=== PATIENT | male | born 1950 | race African-American/Black ===

== ENCOUNTER 2016-03-08 05:51 | Emergency (ER) | payer OTHER ==
[~2016-03-08] VITALS: Ht 188 cm; Wt 138.0 kg
[~2016-03-08 05:51] MED LIST: ACET-2158 PO; ALLO100T PO; ASPI81TA3 PO; ATOR40TA68 PO; CARV12.579 PO; CHOL100062 PO; CIPR500T4 PO; DOCU250C58 PO; HYDR-3012 PO; LEVO25TA53 PO; LORATIDINE PO; LOSA100T7 PO; METF500T4 PO; MULTI PO
[2016-03-08 06:04] VITALS: Ht 188 cm; Wt 138.0 kg
[2016-03-08 06:50] LABS: HEMATOCRIT 29.3 % (42.0-52.0); HEMOGLOBIN 9.9 g/dl (14.0-18.0); MEAN CORPUSCULAR HEMOGLOBIN 30.2 pg (29.0-33.0); MEAN CORPUSCULAR HGB CONC 33.7 g/dl (32.0-37.0); MEAN CORPUSCULAR VOLUME 89.6 fl (82.0-101.0); MEAN PLATELET VOLUME 9.1 fl (7.4-10.4); PLATELET COUNT 341 10^3/UL (140-440); RED BLOOD COUNT 3.27 10^6/ul (4.70-6.10); RED CELL DISTRIBUTION WIDTH 15.8 % (11.5-14.5); UNCORRECTED WBC 15.4 10^3/ul (4.8-10.8); WHITE BLOOD COUNT 15.4 10^3/ul (4.8-10.8)
[2016-03-08 06:53] LABS: ADD UMIC YES; URINE BILIRUBIN (Dip) 2+ (NEGATIVE); URINE BLOOD (Dip) 3+ (NEGATIVE); URINE COLOR DK. RED (YELLOW); URINE GLUCOSE (Dip) NEGATIVE (NEGATIVE); URINE KETONES (Dip) TRACE (NEGATIVE); URINE LEUKOCYTE ESTERASE (Dip) 1+ (NEGATIVE); URINE NITRITE (Dip) POSITIVE (NEGATIVE); URINE TOTAL PROTEIN (Dip) 4+ (NEGATIVE); URINE UROBILINOGEN (Dip) 1.0 E.U./dL (0.1-1.0)
[2016-03-08 06:55] LABS: INR 1.2; PROTIME 15.3 Sec (12.2-14.2); PT RATIO 1.2
[2016-03-08 06:56] LABS: CONDITION 1; LH ANALYZER COMMENTS 1; PARTIAL THROMBOPLASTIN TIME 33.8 Sec (25.0-35.0); SUSPECT 1
[2016-03-08 06:59] LABS: BACTERIA,URINE MODERATE; ICTOTEST NEGATIVE (NEGATIVE); URINE RBCS >200 /HPF (0)
[2016-03-08 07:00] LABS: POTASSIUM 5.1 mmol/L (3.5-5.1)
[2016-03-08 07:02] LABS: CREATININE 2.65 mg/dl (0.61-1.24)
[2016-03-08 07:03] LABS: CALCIUM 9.1 mg/dl (8.4-10.2)
[2016-03-08] MEDS ORDERED: CIPR500T4 PO (07:35)
[2016-03-08 07:38] LABS: ANISOCYTOSIS 1+; EOSINOPHILS # 0.2 10^3/ul (0.0-0.5); LYMPHOCYTES # 1.5 10^3/ul (0.8-2.9); MONOCYTE # 1.1 10^3/ul (0.3-0.9); NEUTROPHIL # 11.4 10^3/ul (1.6-7.5)
[2016-03-08] MEDS ORDERED: LOPE2CAP PO (07:54)
--- NOTE | 2016-03-08 08:06 | ERD ---
ER Documentation Chief Complaint Date/Time DATE: 03/08/16 TIME: 08:04 Chief Complaint bladder retention and bleeding ffrom urethra x 10 hrs, pain HPI Patient is a 65-year-old male with bladder cancer who presents saying that he is unable to pee. He has been unable to urinate for the past 12 hours. He is having pain over the bladder. He has no fevers. He said that he had resection of a bladder tumor last week and BCG implantation. He has an appointment scheduled with his urologist at the [facility] tomorrow. Upon review of old medical records this is the patient's fourth visit to the ER since 2009. ROS All systems reviewed and are negative except as per history of present illness. Medications Home Meds Active Scripts Loperamide Hcl* (Imodium*) 2 Mg Capsule, 2 MG PO .AFTER EA LOOSE BM Y for DIARRHEA, #10 TAB Prov:FADIA HATCH MD 03/08/16 Ciprofloxacin Hcl* (Ciprofloxacin Hcl*) 500 Mg Tablet, 500 MG PO BID for 7 Days , TAB Prov:FADIA HATCH MD 03/08/16 Ciprofloxacin Hcl* (Ciprofloxacin Hcl*) 500 Mg Tablet, 500 MG PO BID, #20 TAB 0 Refills Prov:KOKO RAMSAY MD 09/12/14 Acetaminophen (TYLENOL 325 MG TAB) 325 Mg Tab, 650 MG PO Q6H Y for PAIN LEVEL 1- 3 OR FEVER for 10 Days, TAB Prov:YOON PERRY MD 06/14/14 Reported Medications [Loratidine] No Conflict Check, 10 MG PO DAILY 06/09/14 Carvedilol* (Carvedilol*) 12.5 Mg Tablet, 12.5 MG PO BID, TAB 06/09/14 Losartan Potassium* (Losartan Potassium*) 100 Mg Tablet, 100 MG PO DAILY, TAB 06/08/14 Aspirin* (Aspirin* Chew) 81 Mg Tab.chew, 81 MG PO DAILY, TAB.CHEW 06/08/14 Allopurinol* (Allopurinol*) 100 Mg Tablet, 200 MG PO DAILY, TAB 06/08/14 Cholecalciferol* (Vitamin D3*) 1,000 Unit Tablet, 1000 UNIT PO DAILY, TAB 06/08/14 Docusate Sodium* (Colace*) 250 Mg Capsule, 250 MG PO BID, CAP 06/08/14 Metformin* (Glucophage*) 500 Mg Tab, 500 MG PO BID, TAB 06/08/14 Hydroxyzine Hcl* (Hydroxyzine Hcl*) 50 Mg Tablet, 50 MG PO QHS Y for ITCHING, TAB 06/08/14 Atorvastatin* (Atorvastatin*) 40 Mg Tablet, 40 MG PO HS, TAB 06/08/14 Multivitamins* (Theragran*) 1 Tab Tab, 1 TAB PO DAILY, TAB 06/08/14 Levothyroxine Sodium* (Levothyroxine Sodium*) 25 Mcg Tablet, 25 MCG PO AC BREAKFAST, TAB 06/08/14 Allergies Allergies: Coded Allergies: Sulfa (Sulfonamide Antibiotics) (Verified Allergy, Mild, RASHES, 09/11/14) furosemide (Verified Allergy, Mild, Rash, 09/11/14) PMhx/Soc History of Surgery: Yes (PROSTATE BX, HEART STENT X 3) Anesthesia Reaction: No Hx Neurological Disorder: No Hx Respiratory Disorders: No Hx Cardiac Disorders: Yes (HTN,HIGH CHOLESTEROL) Hx Psychiatric Problems: No Hx Miscellaneous Medical Probl: Yes (ELEVATED PSA,BLADDER AND KIDNEY CA) Hx Alcohol Use: No Hx Substance Use: Yes Hx Tobacco Use: Yes Smoking Status: Current every day smoker FmHx Family History: No diabetes Physical Exam Vitals Vital Signs Date Time Temp Pulse Resp B/P Pulse Ox O2 Delivery O2 Flow Rate FiO2 03/08/16 06:04 98.7 90 22 134/73 98 Physical Exam Const: No acute distress Head: Atraumatic Eyes: Normal Conjunctiva ENT: Normal External Ears, Nose and Mouth. Neck: Full range of motion..~ No meningismus. Resp: Clear to auscultation bilaterally Cardio: Regular rate and rhythm, no murmurs Abd: Soft, non tender, non distended. Normal bowel sounds Skin: No petechiae or rashes Back: No midline or flank tenderness Ext: No cyanosis, or edema Neur: Awake and alert : Nursing place a Travis catheter which shows bloody urine Result Diagram: 03/08/1662403/08/16624 Results 24 hrs Laboratory Tests Test 03/08/16 06:21 03/08/16 06:25 Urine Bacteria MODERATE Urine Bilirubin 2+ Urine Clarity CLOUDY Urine Color DK. RED Urine Glucose NEGATIVE% Urine Hemoglobin 3+ Urine Ictotest NEGATIVE Urine Ketones TRACE Urine Leukocyte Esterase 1+ Urine Microscopic RBC >200/HPF Urine Microscopic WBC 2-5/HPF Urine Nitrite POSITIVE Urine Specific [place] 1.020 Urine Total Protein 4+ Urine Urobilinogen 1.0 E.U./dL Urine pH 7.0 Activated Partial Thromboplast Time 33.8Sec Anion Gap 20 Anisocytosis 1+ Band Neutrophils % 8.0% Basophils # 10^3/ul Basophils % % Blood Morphology Comment Blood Urea Nitrogen 31mg/dl Calcium Level 9.1mg/dl Carbon Dioxide Level 18mmol/L Chloride Level 103mmol/L Creatinine 2.65mg/dl Differential Comment MANUAL DIFF Eosinophils # 0.210^3/ul Eosinophils % 1.0% Glucose Level 130mg/dl Hematocrit 29.3% Hemoglobin 9.9g/dl INR International Normalized Ratio 1.20 Lymphocytes # 1.510^3/ul Lymphocytes % 10.0% Mean Corpuscular Hemoglobin 30.2pg Mean Corpuscular Hemoglobin Concent 33.7g/dl Mean Corpuscular Volume 89.6fl Mean Platelet Volume 9.1fl Monocytes # 1.110^3/ul Monocytes % 7.0% Neutrophils # 11.410^3/ul Neutrophils % 74.0% Nucleated Red Blood Cells # 10^3/ul Nucleated Red Blood Cells % /100WBC Platelet Count 78465^3/UL Potassium Level 5.1mmol/L Prothrombin Time 15.3Sec Prothrombin Time Ratio 1.2 Red Blood Count 3.2710^6/ul Red Cell Distribution Width 15.8% Sodium Level 136mmol/L White Blood Count 15.410^3/ul Procedures/MDM Patient is a 65-year-old male who presents with hematuria and urinary retention. Travis catheter was placed in the patient feels much better. The patient will be given Cipro to prevent infection and will follow up with his urologist tomorrow. His hemoglobin is 9.9 and he does not require transfusion although this does show anemia. He does have an elevated creatinine but upon review of an old creatinine in 2015 he has had this elevation in the past. I believe it is likely chronic. He can return for any worsening symptoms. He does have diarrhea but at this point I doubt GI bleed. Departure Diagnosis: Primary Impression: Hematuria Additional Impressions: Retention of urine Anemia Anemia type: unspecified type Qualified Code: D64.9 - Anemia, unspecified type Chronic renal failure Chronic kidney disease stage: unspecified stage Qualified Code: N18.9 - Chronic renal failure, unspecified stage Condition: Fair Patient Instructions: Hematuria, Urinary Retention, Male Additional Instructions: SPECIALIST: YOU HAVE A MEDICAL CONDITION WHICH REQUIRES YOU TO SEE A SPECIALIST WITHIN THE NEXT 1-2 DAYS. PLEASE FOLLOW UP WITH YOUR PRIMARY PHYSICIAN FOR REFFERAL.IF YOU DO NOT HAVE A PRIMARY CARE PHYSICIAN AND/OR YOU CAN NOT AFFORD TO SEE A PHYSICIAN THE FOLLOWING RESOURCES HAVE BEEN SUPPLIED TO YOU. IT IS YOUR RESPONSIBILITY TO BE SEEN BY THE SPECIALIST FADIA HATCH MD Mar 08, 2016 08:06
[2016-03-08 08:29] VITALS: BP 105/93; PULSE 78; RESP 18; TEMP 98.1
== END 2016-03-08 08:43 | disposition home or self-care (01) ==
LOC: E/R 05:51
DX: R31.9 Hematuria, unspecified (principal); D64.9 Anemia, unspecified; N18.9 Chronic kidney disease, unspecified; F17.210 Nicotine dependence, cigarettes, uncomplicated; E11.9 Type 2 diabetes mellitus without complications; I12.9 Hypertensive chronic kidney disease with stage 1 through stage 4 chronic kidney disease, or unspecified chronic kidney disease; Z79.82 Long term (current) use of aspirin; Z85.51 Personal history of malignant neoplasm of bladder; Z85.528 Personal history of other malignant neoplasm of kidney; Z79.84 Long term (current) use of oral hypoglycemic drugs; Z98.61 Coronary angioplasty status
CPT/HCPCS: 36415; 80048; 81001; 81003; 85025; 85610; 85730; 86850; 86900; 86901; 87086

== ENCOUNTER 2016-11-28 10:32 | Inpatient (IN) | payer OTHER ==
[~2016-11-28] VITALS: Ht 188 cm; Wt 135.0 kg
[~2016-11-28 10:32] MED LIST changes: +LOPE2CAP PO
--- NOTE | 2016-11-28 11:34 | RADRPT ---
PROCEDURE: XR Chest. CLINICAL INDICATION: Shortness of breath. TECHNIQUE: Single frontal view. COMPARISON: 06/10/2014. FINDINGS: The lungs are clear. The left arm PICC line has been removed. The heart is enlarged. There are multiple old healed right rib fractures. There is no pleural effusion. There is no pneumothorax. IMPRESSION: 1. Left arm PICC line removed. 2. No other change from 06/10/2014. RPTAT: QQ .Roberto Carlos Mojica MD, MD Date Time Electronically viewed and signed by .Roberto Carlos Mojica MD, MD on 11/28/2016 11:34 .R/
[2016-11-28] MEDS ORDERED: LORA10TA3 PO (11:59)
[2016-11-28] MEDS ORDERED: FINA5TAB4 PO (12:00)
[2016-11-28] MEDS ORDERED: NICO1PAT6 TD (12:00)
[2016-11-28] MEDS ORDERED: BUME1TAB18 PO (12:00)
[2016-11-28] MEDS ORDERED: FERR256T PO (12:01)
[2016-11-28 12:11] LABS: BASOPHILS % 0.3 % (0.0-2.0); EOSINOPHILS # 0.2 10^3/ul (0.0-0.5); EOSINOPHILS % 2.3 % (0.0-7.0); HEMATOCRIT 37.5 % (42.0-52.0); LYMPHOCYTES # 1.2 10^3/ul (0.8-2.9); LYMPHOCYTES % 16.8 % (15.0-51.0); MEAN CORPUSCULAR HEMOGLOBIN 28.2 pg (29.0-33.0); MONOCYTE # 0.8 10^3/ul (0.3-0.9); MONOCYTES % 10.4 % (0.0-11.0); NEUTROPHIL # 5.1 10^3/ul (1.6-7.5); NEUTROPHILS % 69.9 % (39.0-77.0); PLATELET COUNT 365 10^3/UL (140-415); RED BLOOD COUNT 4.26 10^6/ul (4.70-6.10); RED CELL DISTRIBUTION WIDTH 19.2 % (11.5-14.5); WHITE BLOOD COUNT 7.3 10^3/ul (4.8-10.8)
[2016-11-28 12:27] LABS: ADD UMIC YES; UR ASCORBIC ACID NEGATIVE (NEGATIVE); UR BACTERIA MODERATE /HPF (NONE SEEN); UR BILIRUBIN (Dip) NEGATIVE (NEGATIVE); UR BLOOD (Dip) 1+ mg/dL (NEGATIVE); UR CLARITY CLEAR (CLEAR); UR COLOR YELLOW (YELLOW); UR GLUCOSE (Dip) NEGATIVE (NEGATIVE); UR KETONES (Dip) NEGATIVE (NEGATIVE); UR LEUKOCYTE ESTERASE (Dip) 1+ Leu/ul (NEGATIVE); UR NITRITE (Dip) NEGATIVE (NEGATIVE); UR RBC 5 /HPF (0-5); UR SPECIFIC GRAVITY (Dip) 1.011 (1.003-1.030); UR TOTAL PROTEIN (Dip) NEGATIVE (NEGATIVE); UR UROBILINOGEN (Dip) NEGATIVE (NEGATIVE)
[2016-11-28 12:28] LABS: INR 1.05; PROTIME 13.7 Sec (12.2-14.2); PT RATIO 1.1
[2016-11-28 12:29] LABS: PARTIAL THROMBOPLASTIN TIME 26.4 Sec (25.0-35.0)
[2016-11-28 12:31] LABS: CREATININE 2.05 mg/dl (0.61-1.24); POTASSIUM 3.7 mmol/L (3.5-5.1)
[2016-11-28 12:51] LABS: TROPONIN-I 1.04 ng/ml (0.00-0.12)
[2016-11-28 12:54] LABS: BARBITURATES NEGATIVE (NEGATIVE); BENZODIAZEPINES NEGATIVE (NEGATIVE); CANNABINOIDS NEGATIVE (NEGATIVE); COCAINE NEGATIVE (NEGATIVE); OPIATES NEGATIVE (NEGATIVE)
[2016-11-28] MEDS ORDERED: ACETAMINOPHEN 325 MG TAB PO PRN (13:00)
[2016-11-28] MEDS ORDERED: ONDANSETRON 4 MG INJ IV PRN ×2 (13:00→14:00)
--- NOTE | 2016-11-28 13:14 | RADRPT ---
PROCEDURE: CT brain without contrast CLINICAL INDICATION: Possible stroke, neurologic deficit TECHNIQUE: CT of the brain without contrast performed on a multidetector CT scanner, with multiplan ar reformats. One or more of the following dose reduction techniques were used: Automated exposure control, adjustment in mA and / or kV according to patient size, use of iterative reconstructive harriet hnique. CTDIvol = 43 mGy; DLP = 720 mGy-cm. COMPARISON: None available FINDINGS: There are small areas of hypodensity in the superior left cerebellar hemisphere, suspicious for rece nt or subacute infarcts. No acute intracranial hemorrhage is identified. No extra-axial fluid colle ction is seen. There is no mass effect. No midline shift is identified. The ventricles and sulci are mildly enlarged compatible with generalized volume loss. There are mild areas of hypodensity in the periventricular - deep white matter which are nonspecific but suggestive of chronic small vessel ischemic changes. Rizzo-white differentiation is otherwise p reserved. Partly empty sella is noted. Atherosclerotic calcifications of the intracranial internal carotid arteries are noted. Calvarium and skull base are intact. Mastoid air cells and imaged paranasal sinuses grossly clear. IMPRESSION: 1. Findings suspicious for small recent - subacute left cerebellar infarcts. Follow up with MRI is recommended. 2. No acute intracranial hemorrhage identified. 3. Mild generalized volume loss, with mild chronic small vessel ischemic changes. RPTAT: VV .Syed Rapp MD, MD Date Time Electronically viewed and signed by .Syed Rapp MD, MD on 11/28/2016 13:14 .O/
[2016-11-28] MEDS ORDERED: HEPARIN 1000 UNITS/ML 10 ML INJ IV STA (13:43)
[2016-11-28] MEDS ORDERED: ASPIRIN 325 MG TAB PO STA (13:43)
[2016-11-28] MEDS ORDERED: HEPARIN 25000 UNITS/250 ML 250 ML IV STA (13:43)
[2016-11-28] MEDS ORDERED: Discontinue current oral sulfonylureas (glyburide, glipizide, and/or glimepiride) prior to XX ONE (14:00)
[2016-11-28] MEDS ORDERED: HYPOGLYCEMIA PROTOCOL when Glucose is <70 mg/dL or symptomatic <90 mg/dL. XX ONE (14:00)
[2016-11-28] MEDS ORDERED: CEFTRIAXONE 1 GM/50 ML (PMX) 50 ML IVPB ONE (14:00)
[2016-11-28] MEDS ORDERED: ACETAMINOPHEN 650 MG SUPP PR PRN (14:00)
[2016-11-28] MEDS ORDERED: morphine 2 MG INJ IV PRN (14:00)
[2016-11-28] MEDS ORDERED: NACL 0.9% 3 ML SYG IV SCH (14:00)
--- NOTE | 2016-11-28 14:24 | ERA ---
ER Documentation Chief Complaint Date/Time DATE: 11/28/16 TIME: 14:22 Chief Complaint LEFT SIDE WEAKNESS ONSET LAST WEEKNEND HPI Patient is a 58-year-old male with hypertension, diabetes, and thyroid disease who presents with left-sided weakness. The symptoms started on Sunday. He was concerned for stroke. He has had "dry heaves". He denies pain. He has left arm and left leg numbness. He feels like he is off balance and is falling to his left side as well. Upon review of old medical records this is the patient's fifth visit to the ER since 2009. ROS All systems reviewed and are negative except as per history of present illness. Medications Home Meds Reported Medications Ferrous Gluconate (Iron) 256 Mg Tablet, 256 MG PO BID, TAB 11/28/16 Finasteride* (Finasteride*) 5 Mg Tablet, 5 MG PO DAILY, TAB 11/28/16 Nicotine* (Nicotine* Patch) 21 mg/day Patch, 1 EACH TD DAILY, PATCH 11/28/16 Bumetanide* (Bumetanide*) 1 Mg Tablet, 1 MG PO DAILY, TAB 11/28/16 Loratadine* (Loratadine*) 10 Mg Tablet, 10 MG PO DAILY, #30 TAB 11/28/16 Carvedilol* (Carvedilol*) 12.5 Mg Tablet, 12.5 MG PO BID, TAB 06/09/14 Aspirin* (Aspirin* Chew) 81 Mg Tab.chew, 81 MG PO DAILY, TAB.CHEW 06/08/14 Cholecalciferol* (Vitamin D3*) 1,000 Unit Tablet, 1000 UNIT PO DAILY, TAB 06/08/14 Docusate Sodium* (Colace*) 250 Mg Capsule, 250 MG PO BID, CAP 06/08/14 Atorvastatin* (Atorvastatin*) 40 Mg Tablet, 40 MG PO HS, TAB 06/08/14 Multivitamins* (Theragran*) 1 Tab Tab, 1 TAB PO DAILY, TAB 06/08/14 Levothyroxine Sodium* (Levothyroxine Sodium*) 25 Mcg Tablet, 25 MCG PO AC BREAKFAST, TAB 06/08/14 Discontinued Reported Medications [Loratidine] No Conflict Check, 10 MG PO DAILY 06/09/14 Losartan Potassium* (Losartan Potassium*) 100 Mg Tablet, 100 MG PO DAILY, TAB 06/08/14 Allopurinol* (Allopurinol*) 100 Mg Tablet, 200 MG PO DAILY, TAB 06/08/14 Metformin* (Glucophage*) 500 Mg Tab, 500 MG PO BID, TAB 06/08/14 Hydroxyzine Hcl* (Hydroxyzine Hcl*) 50 Mg Tablet, 50 MG PO QHS Y for ITCHING, TAB 06/08/14 Discontinued Scripts Loperamide Hcl* (Imodium*) 2 Mg Capsule, 2 MG PO .AFTER EA LOOSE BM Y for DIARRHEA, #10 TAB Prov:FADIA HATCH MD 03/08/16 Ciprofloxacin Hcl* (Ciprofloxacin Hcl*) 500 Mg Tablet, 500 MG PO BID for 7 Days , TAB Prov:FADIA HATCH MD 03/08/16 Ciprofloxacin Hcl* (Ciprofloxacin Hcl*) 500 Mg Tablet, 500 MG PO BID, #20 TAB 0 Refills Prov:KOKO RAMSAY MD 09/12/14 Acetaminophen (TYLENOL 325 MG TAB) 325 Mg Tab, 650 MG PO Q6H Y for PAIN LEVEL 1- 3 OR FEVER for 10 Days, TAB Prov:YOON PERRY MD 06/14/14 Allergies Allergies: Coded Allergies: Sulfa (Sulfonamide Antibiotics) (Verified Allergy, Mild, RASHES, 09/11/14) furosemide (Verified Allergy, Mild, Rash, 09/11/14) PMhx/Soc History of Surgery: Yes (PROSTATE BX, HEART STENT X 3) Anesthesia Reaction: No Hx Neurological Disorder: No Hx Respiratory Disorders: No Hx Cardiac Disorders: Yes (HTN,HIGH CHOLESTEROL) Hx Psychiatric Problems: No Hx Miscellaneous Medical Probl: Yes (ELEVATED PSA,BLADDER AND KIDNEY CA) Hx Alcohol Use: No Hx Substance Use: Yes Hx Tobacco Use: Yes Smoking Status: Current every day smoker FmHx Family History: diabetes Physical Exam Vitals Vital Signs Date Time Temp Pulse Resp B/P Pulse Ox O2 Delivery O2 Flow Rate FiO2 11/28/16 10:36 97.8 93 18 139/73 99 Physical Exam Const: No acute distress Head: Atraumatic Eyes: Normal Conjunctiva ENT: Normal External Ears, Nose and Mouth. Neck: Full range of motion..~ No meningismus. Resp: Clear to auscultation bilaterally Cardio: Regular rate and rhythm, no murmurs Abd: Soft, non tender, non distended. 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 compared to the right, no slurred speech, no facial droop Psych: Normal Mood and Affect Result Diagram: 11/28/16 1200 11/28/16 1200 Results 24 hrs Laboratory Tests Test 11/28/16 12:00 White Blood Count 7.310^3/ul Red Blood Count 4.2610^6/ul Hemoglobin 12.0g/dl Hematocrit 37.5% Mean Corpuscular Volume 88.0fl Mean Corpuscular Hemoglobin 28.2pg Mean Corpuscular Hemoglobin Concent 32.0g/dl Red Cell Distribution Width 19.2% Platelet Count 36405^3/UL Mean Platelet Volume 10.0fl Neutrophils % 69.9% Lymphocytes % 16.8% Monocytes % 10.4% Eosinophils % 2.3% Basophils % 0.3% Nucleated Red Blood Cells % 0.0/100WBC Neutrophils # 5.110^3/ul Lymphocytes # 1.210^3/ul Monocytes # 0.810^3/ul Eosinophils # 0.210^3/ul Basophils # 0.010^3/ul Nucleated Red Blood Cells # 0.010^3/ul Prothrombin Time 13.7Sec Prothrombin Time Ratio 1.1 INR International Normalized Ratio 1.05 Activated Partial Thromboplast Time 26.4Sec Urine Color YELLOW Urine Clarity CLEAR Urine pH 5.0 Urine Specific [place] 1.011 Urine Ketones NEGATIVEmg/dL Urine Nitrite NEGATIVEmg/dL Urine Bilirubin NEGATIVEmg/dL Urine Urobilinogen NEGATIVEmg/dL Urine Leukocyte Esterase 1+[place]/ul Urine Microscopic RBC 5/HPF Urine Microscopic WBC 15/HPF Urine Bacteria MODERATE/HPF Urine Hemoglobin 1+mg/dL Urine Glucose NEGATIVEmg/dL Urine Total Protein NEGATIVEmg/dl Sodium Level 141mmol/L Potassium Level 3.7mmol/L Chloride Level 109mmol/L Carbon Dioxide Level 24mmol/L Anion Gap 12 Blood Urea Nitrogen 21mg/dl Creatinine 2.05mg/dl Glucose Level 118mg/dl Hemoglobin A1c 12.5% Calcium Level 9.0mg/dl Troponin I 1.040ng/ml Urine Opiates Screen NEGATIVE Urine Barbiturates NEGATIVE Urine Amphetamines Screen NEGATIVE Urine Benzodiazepines Screen NEGATIVE Urine Cocaine Screen NEGATIVE Urine Cannabinoids NEGATIVE Current Medications Medications (Trade) Dose Ordered Sig/Augusto Route PRN Reason Start Time Stop Time Status Last Admin Dose Admin Ondansetron HCl (Zofran Inj) 4 mg ER BRIDGE PRN IV NAUSEA AND/OR VOMITING 11/28/16 13:00 11/29/16 12:59 Acetaminophen 650 mg 650 mg ER BRIDGE PRN PO MILD PAIN/FEVER 11/28/16 13:00 11/29/16 12:59 Ceftriaxone Sodium (Rocephin) 50 ml @ 100 mls/hr ONCE ONCE IVPB 11/28/16 14:00 11/28/16 14:29 Aspirin (Aspirin) 325 mg ONCE STAT PO 11/28/16 13:43 11/28/16 13:45 DC Heparin Sodium (Porcine) 5000 unit 5,000 unit ONCE STAT IV 11/28/16 13:43 11/28/16 13:45 DC Heparin Sodium (Porcine) (Heparin 58414 Units/250 ml) 250 ml @ 0 mls/hr ONCE STAT IV 11/28/16 13:43 11/28/16 13:45 DC Aspirin (Aspirin) 81 mg DAILY PO 11/29/16 09:00 UNV Atorvastatin Calcium (Lipitor) 40 mg HS PO 11/28/16 21:00 11/28/16 21:00 DC Bumetanide (Bumex) 1 mg DAILY PO 11/29/16 09:00 UNV Carvedilol (Coreg) 12.5 mg BID PO 11/28/16 21:00 UNV Cholecalciferol (Vitamin D) 1,000 unit DAILY PO 11/29/16 09:00 UNV Docusate Sodium (Colace) 250 mg BID PO 11/28/16 21:00 UNV Finasteride (Proscar) 5 mg DAILY PO 11/29/16 09:00 UNV Levothyroxine Sodium (Synthroid) 25 mcg AC BREAKFAST PO 11/29/16 07:00 UNV Loratadine (Claritin) 10 mg DAILY PO 11/29/16 09:00 UNV Multivitamins Therapeutic (Theragran) 1 tab DAILY PO 11/29/16 09:00 UNV Nicotine (Nicoderm 21 Mg/ 24hr) 1 patch DAILY TRANSDERM 11/29/16 09:00 UNV Miscellaneous Information 256 mg BID PO 11/28/16 21:00 UNV IV Flush (NS 3 ml) 3 ml PER PROTOCOL IV 11/28/16 14:00 UNV Ondansetron HCl (Zofran Inj) 4 mg Q6H PRN IV NAUSEA AND/OR VOMITING 11/28/16 14:00 UNV Acetaminophen (Tylenol Tab) 650 mg Q6H PRN PO PAIN LEVEL 1-3 OR FEVER 11/28/16 14:00 UNV Acetaminophen (Tylenol Supp) 650 mg Q6H PRN NC PAIN LEVEL 1-3 OR FEVER 11/28/16 14:00 UNV Morphine Sulfate (morphine) 2 mg Q4H PRN IV SEVERE PAIN LEVEL 7-10 11/28/16 14:00 UNV Famotidine (Pepcid) 20 mg Q12 PO 11/28/16 21:00 UNV Heparin Sodium (Porcine) (Heparin (5000 Units/0.5 ml)) 5,000 unit Q12 SC 11/28/16 21:00 UNV Miscellaneous Information (* Miscellaneous Pharmacy Order) Discontinue current oral sulfonylur... ONCE ONCE XX 11/28/16 14:00 11/28/16 14:01 UNV Diagnostic Test (Pha) (Accu-Chek) 1 ea 02 XX 11/29/16 02:00 UNV Insulin Glargine (Lantus) 20 unit DAILY@08 SC 11/29/16 08:00 UNV Miscellaneous Information (* Miscellaneous Pharmacy Order) HYPOGLYCEMIA PROTOCOL w... ONCE ONCE XX 11/28/16 14:00 11/28/16 14:01 UNV Insulin Aspart (Novolog Insulin Pen) NOVOLOG *MILD* ALGORITHM WITH MEALS BEDTIME SC 11/28/16 18:00 UNV Miscellaneous Information (* Miscellaneous Pharmacy Order) Discontinue all previ... ONCE ONCE XX 11/28/16 14:00 11/28/16 14:01 UNV Atorvastatin Calcium (Lipitor) 80 mg HS PO 11/28/16 21:00 UNV Procedures/MDM EKG read by me: Rate/Rhythm: Regular rate and rhythm at a normal rate Intervals: Normal Impression: No evidence of ischemia or arrhythmia CT brain shows possible subacute infarcts in the cerebellum per radiology. Smoking Cessation Therapy: Pt. was lectured for greater than 3 minutes on the health risks of continued smoking and the benefits of cessation. Patient is a 66-year-old male with multiple risk factors who presents with left- sided weakness. He was found to have a positive troponin of an NSTEMI. He was given aspirin for this. He had passed a swallow evaluation and had an NIH stroke scale. CT scan of the brain shows subacute stroke and he will be given aspirin for this as well. There is no sign of bleed or intracranial mass. The patient will be admitted to a telemetry bed to the panel team. He will likely need further workup for the positive troponin and stroke. He has no STEMI at this time and does not need emergent cardiac catheterization. He is outside the window for TPA for stroke as the symptoms started on Sunday. Critical Care: Time: 35 minutes excluding all billable procedures. Treatments/Evaluations: Close monitoring and treatment of unstable vital signs, cardiorespiratory, and neurologic status, while maintaining tight balance of fluid, respiratory, and cardiac interventions. Departure Diagnosis: Primary Impression: Stroke Qualified Code: I63.9 - Cerebrovascular accident (CVA), unspecified mechanism Additional Impressions: Acute weakness NSTEMI (non-ST elevated myocardial infarction) Condition: FADIA Steward MD Nov 28, 2016 14:24
--- NOTE | 2016-11-28 14:34 | HP ---
Date/Time of Note Date/Time of Note DATE: 11/28/16 TIME: 14:16 Assessment/Plan VTE Prophylaxis VTE Prophylaxis Intervention: heparin Lines/Catheters IV Catheter Type (from Rust): Saline Lock Assessment/Plan Chief Complaint/Hosp Course 66-year-old obese -Swazi male, presented to the emergency room for evaluation of sudden onset of dizziness with off-balance 3 day duration. NEURO: (1)Acute onset of gait and mobility abnormality: Most likely acute CVA. CT brain suspicious for small recent - subacute left cerebellar infarcts-obviously , patient is out of TPA window. -Obtain a complete stroke workups including MRI, MRA brain, MRA neck, and 2D echocardiogram. -Obtain lipid panel, A1c, diabetic education, PT/OT/ST evaluation and treatment. -Aspirin, high intensity statin. Blood pressure goal <140/90. -Neurology consult. CARDS: (1) Elevated troponin in the absence of chest pain: This is most likely secondary to poor renal clearances versus CVA vs cardiac ischemic events. -Rule out ACS with 3 sets troponin, serial EKGs. We will also request cardiology consult. -Aspirin, nitroglycerin sublingual PRN, and morphine PRN. (2)Essential hypertension. -Resume home medications. (3)Hypercholesterolemia. -Resume statin. Obtain lipid panel in a.m. (4)Ischemic cardiomyopathy. -Continue home medications. Obtain 2D echocardiogram. RENAL: (1)Chronic kidney disease. Creatinine appears baseline. -Nephrology consultation. Monitor renal function closely and renally dose medications. (2)Hx of RCC-Status post left nephrectomy. ENDO (1)DM II-poorly controlled. A1c 12.5. -Start Accu-Cheks/ISS/Lantus based on weight. -Diabetic education, carb controlled diet. (2)Hypothyroidism. -Resume Synthroid. Obtain TSH. INFECTIOUS: (1)Possible urinary tract infection. UA suggestive. -Obtain cultures. Empiric antibiotics. HSQ Prophylaxis Rest of the management depend hospital course and recommendations from consultants. Approximately 60 minutes was spent on this history and physical. Patient was seen in collaboration with . Problems: HPI/ROS Admit Date/Time Admit Date/Time Hx of Present Illness This is a 66-year-old obese with multiple comorbidities significant for tobacco use, ischemic cardiomyopathy, mitral regurgitation, type 2 diabetes- off treatment, coronary artery disease with PCI, bladder cancer, renal carcinoma, status post left nephrectomy, dyslipidemia, hypothyroidism, gout, pyelonephritis with sepsis history, hypertension, chronic kidney disease, obstructive nephropathy with nephrolithiasis and stent placement in the past, and BPH, who essentially presented to the emergency room for evaluation of acute onset of dizziness , off balancing on left side, and LUE ,LLE numbness, which started 4 days ago-to be exact, on Sunday. He has had "dry heaves". Patient denied any history of stroke. Patient has been under the care of [facility] facility. Patient denied chest pain, palpitation, shortness of breath, nausea, vomiting, abdominal pain, headache, numbness, tingling or other constitutional symptoms. Denied any vision changes, facial asymmetry, neglect, or dysarthria. In the emergency room, patient was noted with elevated troponin I 0.040. His EKG showed nonspecific ST and T-wave changes without any acute changes. Patient also had elevated BUN 21 with creatinine 2.05. Vital signs within acceptable range. Chest x-ray without any acute changes. A brain CT showed suspicion for small recent/subacute left cerebellar infarct. There was no acute hemorrhage identified. Patient was treated with 325 mg aspirin, heparin 5000 IV and was admitted for further evaluation. ROS A12 point review of system was assessed and is negative other than what is mentioned in HPI. PMH/Family/Social Past Medical History See HPI Past Surgical History See HPI Social History Patient uses nicotine patch. However, he continues to smoke occasionally. Denies alcohol or illicit drug use history. Smoking Status: Current every day smoker Exam/Review of Systems Vital Signs Vitals Vital Signs Date Time Temp Pulse Resp B/P Pulse Ox O2 Delivery O2 Flow Rate FiO2 11/28/16 10:36 97.8 93 18 139/73 99 Exam Exam General: Disheveled obese -Swazi male, not in any acute distress . HEENT: Normocephalic, Atraumatic, No laceration or hematoma; Eyes: PEERL, Conjunctiva clear, Anicteric sclera Neck: Supple without any lymphadenopathy, nontender, no JVD, no carotid bruits, trachea midline, no thyromegaly Cardiac: S1, S2 auscultated, regular rhythm and rate, no mumurs or gallop Pulmonary: Normal respiratory effort. Chest clear to auscultation bilaterally, no adventitious breath sounds GI: Abdomen normal to inspection. Soft, non tender, non- distended, no masses, no rebound tenderness or guarding. Bowel sounds active on all four quadrants Genitourinary: Deferred Extremities: No cyanosis, clubbing, or edema. Pulses [2+] bilaterally. Full ROM on all four extremities. No focal weakness appreciated. Neurologic: Alert to person, place, time, and situation. Affect appropriate, intact sensation. Skin: Chronic vascular changes/hyperpigmentation on bilateral lower extremities. Labs Result Diagram: 11/28/16 1200 11/28/16 1200 Medications Medications Current Medications Ceftriaxone Sodium (Rocephin) 50 ml @ 100 mls/hr ONCE ONCE IVPB ; Start at 14:00; Stop 11/28/16 at 14:29 VICENTA CARNES NP Nov 28, 2016 14:30
[2016-11-28] MEDS ORDERED: GLUCOSE GEL 15 GRAM TUBE BUCCAL PRN (15:00)
[2016-11-28] MEDS ORDERED: GLUCAGON 1 MG INJ IM PRN (15:00)
[2016-11-28] MEDS ORDERED: DEXTROSE 50% 50 ML SYRINGE IV PRN ×2 (15:00)
[2016-11-28] MEDS ORDERED: GLUCOSE GEL 15 GRAM TUBE PO PRN ×2 (15:00)
--- NOTE | 2016-11-28 16:00 | CONS ---
Date/Time of Note Date/Time of Note DATE: 11/28/16 TIME: 15:48 Assessment/Plan Assessment/Plan Chief Complaint/Hosp Course NSTEMI: Type I vs Type II. Trop 1.0 so far. No symptoms. EKG with inferolateral TWI but unclear if new. Possibly elevated in setting of stroke and renal dysfunction. Overall a poor candidate for cardiac cath as no symptoms , non-compliant with meds, solitary kidney with renal dysfunction, and here for a completely different reason. For now treat medically, obtain echo, and reevaluate. Subacute cerebellar CVA: Possibly cardiogenic but also a vasculopath. Echo to eval for cardiac source CAD s/p prior PCI CHF: unknown EF. Currently euvolemic Left nephrectomy for RCC CKD: Last Cr 03/14 was 2.6, now 2.0 Uncontrolled DM Med non-compliance -ASA -hold off on heparin unless ok per neurology with recent stroke and unclear if truly type I VT -lipitor -coreg -bumex to keep even (?home med) -echo -trend trops -further recs based on clinical course Problems: Consultation Date/Type/Reason Admit Date/Time Date of Consultation: Nov 28, 2016 Type of Consultation: Cardiology Reason for Consultation NSTEMI Referring Provider: VICENTA CARNES NP Hx of Present Illness 66 yo M with a h/o CAD s/p PCI x 3 most recently 5 years ago, CHF (unknown EF), CKD (Cr ~2-2.5), left nephrectomy for RCC, uncontrolled DM, HTN, who presented with left sided weakness and unsteady gait and was found to have a cerebellar stroke. Incidentally he was found to have a trop of 1.0. The pt had onset of symptoms with unsteady gait 3 days ago but did not come in until today when [facility]. He denies chest pain or SOB. No recent cardiac issues. He is not compliant with his medications and says he is not on any DM meds. He takes ASA and does not remember the name of his other meds. per HPI, otherwise unremarkable Social History Smoking Status: Current every day smoker Exam/Review of Systems Vital Signs Vitals Vital Signs Date Time Temp Pulse Resp B/P Pulse Ox O2 Delivery O2 Flow Rate FiO2 11/28/16 15:05 74 20 121/74 98 Room Air 11/28/16 10:36 97.8 Exam Constitutional: alert, oriented Psych: no complaints Head: atraumatic, normocephalic Eyes: nl conjunctiva ENMT: nl external ears & nose Neck: supple, No jvd Respiratory: clear to auscultation, No crackles/rales Cardiovascular: regular rate and rhythm, No edema, No systolic murmur Gastrointestinal: non-tender, soft Musculoskeletal: nl extremities to inspection Neurological: nl mental status, nl speech Results EKG: sinus, inferolateral TWI Result Diagram: 11/28/16 1200 11/28/16 1200 Results 24 hrs Laboratory Tests Test 11/28/16 12:00 White Blood Count 7.3 # Red Blood Count 4.26 #L Hemoglobin 12.0 #L Hematocrit 37.5 #L Mean Corpuscular Volume 88.0 Mean Corpuscular Hemoglobin 28.2 L Mean Corpuscular Hemoglobin Concent 32.0 Red Cell Distribution Width 19.2 #H Platelet Count 365 Mean Platelet Volume 10.0 Neutrophils % 69.9 Lymphocytes % 16.8 Monocytes % 10.4 Eosinophils % 2.3 Basophils % 0.3 Nucleated Red Blood Cells % 0.0 Neutrophils # 5.1 Lymphocytes # 1.2 Monocytes # 0.8 Eosinophils # 0.2 Basophils # 0.0 Nucleated Red Blood Cells # 0.0 Prothrombin Time 13.7 Prothrombin Time Ratio 1.1 INR International Normalized Ratio 1.05 Activated Partial Thromboplast Time 26.4 Urine Color YELLOW Urine Clarity CLEAR Urine pH 5.0 Urine Specific [place] 1.011 Urine Ketones NEGATIVE Urine Nitrite NEGATIVE Urine Bilirubin NEGATIVE Urine Urobilinogen NEGATIVE Urine Leukocyte Esterase 1+ H Urine Microscopic RBC 5 Urine Microscopic WBC 15 H Urine Bacteria MODERATE Urine Hemoglobin 1+ H Urine Glucose NEGATIVE Urine Total Protein NEGATIVE Sodium Level 141 Potassium Level 3.7 Chloride Level 109 Carbon Dioxide Level 24 Anion Gap 12 Blood Urea Nitrogen 21 H Creatinine 2.05 H Glucose Level 118 Hemoglobin A1c 12.5 H Calcium Level 9.0 Troponin I 1.040 *H Urine Opiates Screen NEGATIVE Urine Barbiturates NEGATIVE Urine Amphetamines Screen NEGATIVE Urine Benzodiazepines Screen NEGATIVE Urine Cocaine Screen NEGATIVE Urine Cannabinoids NEGATIVE Medications Medications Current Medications Aspirin (Aspirin) 81 mg DAILY PO ; Start 11/29/16 at 09:00 Bumetanide (Bumex) 1 mg DAILY PO ; Start 11/29/16 at 09:00 Carvedilol (Coreg) 12.5 mg BID PO ; Start 11/28/16 at 21:00 Cholecalciferol (Vitamin D) 1,000 unit DAILY PO ; Start 11/29/16 at 09:00 Docusate Sodium (Colace) 250 mg BID PO ; Start 11/28/16 at 21:00 Finasteride (Proscar) 5 mg DAILY PO ; Start 11/29/16 at 09:00 Loratadine (Claritin) 10 mg DAILY PO ; Start 11/29/16 at 09:00 Multivitamins Therapeutic (Theragran) 1 tab DAILY PO ; Start 11/29/16 at 09:00 Nicotine (Nicoderm 21 Mg/ 24hr) 1 patch DAILY TRANSDERM ; Start 11/29/16 at 09: 00 Ferrous Gluconate (Fergon) 325 mg BID PO ; Start 11/28/16 at 21:00 Ondansetron HCl (Zofran Inj) 4 mg Q6H PRN IV NAUSEA AND/OR VOMITING; Start 11/28/16 at 14:00 Acetaminophen (Tylenol Tab) 650 mg Q6H PRN PO PAIN LEVEL 1-3 OR FEVER; Start 11/28/16 at 14:00 Acetaminophen (Tylenol Supp) 650 mg Q6H PRN MD PAIN LEVEL 1-3 OR FEVER; Start 11/28/16 at 14:00 Morphine Sulfate (morphine) 2 mg Q4H PRN IV SEVERE PAIN LEVEL 7-10; Start 11/28 at 14:00 Famotidine (Pepcid) 20 mg Q24H PO ; Start 11/28/16 at 21:00 Heparin Sodium (Porcine) (Heparin (5000 Units/0.5 ml)) 5,000 unit Q12 SC ; Start 11/28/16 at 21:00 Diagnostic Test (Pha) (Accu-Chek) 1 ea 02 XX ; Start 11/29/16 at 02:00 Insulin Glargine (Lantus) 20 unit DAILY@08 SC ; Start 11/29/16 at 08:00 Atorvastatin Calcium (Lipitor) 80 mg HS PO ; Start 11/28/16 at 21:00 Miscellaneous Information 1 ea NOTE XX ; Start 11/28/16 at 15:00 Glucose (Glutose) 15 gm Q15M PRN PO DECREASED GLUCOSE; Start 11/28/16 at 15:00 Glucose (Glutose) 22.5 gm Q15M PRN PO DECREASED GLUCOSE; Start 11/28/16 at 15: 00 Dextrose (D50w Syringe) 25 ml Q15M PRN IV DECREASED GLUCOSE; Start 11/28/16 at 15:00 Dextrose (D50w Syringe) 50 ml Q15M PRN IV DECREASED GLUCOSE; Start 11/28/16 at 15:00 Glucagon (Glucagen) 1 mg Q15M PRN IM DECREASED GLUCOSE; Start 11/28/16 at 15:00 Glucose (Glutose) 15 gm Q15M PRN BUCCAL DECREASED GLUCOSE; Start 11/28/16 at 15 :00 YELENA VÁZQUEZ Nov 28, 2016 16:00
[2016-11-28 17:00] VITALS: TEMP 97.8
[2016-11-28] MEDS: INSULIN ASPART [NOVOLOG] 3 ML PEN SC SCH ×2 (18:00→21:00)
[2016-11-28 19:04] VITALS: BP 112/71; PULSE 74; RESP 18
[2016-11-28 19:22] VITALS: Ht 188 cm; Wt 135.0 kg
[2016-11-28 20:30] VITALS: PULSE 73
[2016-11-28] MEDS ORDERED: ATORVASTATIN 40 MG TAB PO SCH (21:00)
[2016-11-28] MEDS: DOCUSATE SODIUM 250 MG CAP PO SCH (21:00)
[2016-11-28] MEDS: FERROUS GLUCONATE (EC) 325 MG TAB PO SCH (21:00)
[2016-11-28 21:18] LABS: CREATINE KINASE 155 IU/L (23-200)
[2016-11-28 21:31] LABS: CK-MB 1.49 ng/ml (0.0-2.4); TROPONIN-I < 0.012 ng/ml (0.00-0.12)
[2016-11-28] MEDS: FAMOTIDINE 20 MG TAB PO SCH (22:07)
[2016-11-28] MEDS: ATORVASTATIN 80 MG TAB PO SCH (22:08)
[2016-11-28] MEDS: HEPARIN 5,000 UNIT/0.5 ML VIAL SC SCH (22:11)
--- NOTE | 2016-11-28 22:40 | CONS ---
DATE OF ADMISSION: 11/28/2016 DATE OF CONSULTATION: 11/28/2016 REASON FOR CONSULTATION: Chronic kidney disease. HISTORY OF PRESENT ILLNESS: This is a 66-year-old male with a past medical history of chronic kidney disease, history of nephrectomy secondary to renal cell carcinoma, history of hypertension, history of cardiomyopathy, who presents to [facility] with complaints of dizziness and vertigo x3 days. The patient, upon admission, had a CT scan of the brain, which showed no acute findings, with possible findings of recent subacute cerebellar infarct. The patient in the emergency room was treated with stat therapy, IV antibiotics, and given aspirin. In terms of patient's renal history, patient has underlying CKD, had a nephrectomy due to renal cell carcinoma. Patient himself does not know what his baseline renal function is. He denies any current episodes of hemoptysis, hematemesis, or hematochezia. PAST MEDICAL HISTORY: As stated above, history of cardiomyopathy, CKD, hypothyroidism, dyslipidemia, history of bladder cancer, and diabetes. PAST SURGICAL HISTORY: Status post nephrectomy, status post obstructive uropathy, with a previous stent placement, status post prostate biopsy, status post PCI. FAMILY HISTORY: Noncontributory. SOCIAL HISTORY: Does not drink, smoke, or do drugs. MEDICATION: Reviewed. ALLERGIES: PLEASE SEE LIST. REVIEW OF SYSTEMS: A 14-point review of systems was conducted. Pertinent positives as stated in HPI, otherwise negative. OBJECTIVE DATA: VITAL SIGNS: Blood pressure is 112/71, respirations 18, pulse 84, temperature 98.8. HEENT: Head is normocephalic. Pupils are reactive to light. NECK: Supple. HEART: Regular rate. LUNGS: Show diminished breath sounds at the base. ABDOMEN: Soft, nontender to palpation. No rebound or guarding. EXTREMITIES: Negative for clubbing, cyanosis. Trace edema. DERMATOLOGIC: No rashes. MUSCULOSKELETAL: No joint effusion. NEUROLOGICAL: Limited exam, due to lack of patient cooperation. LABORATORY: Shows sodium 141, potassium , chloride 109, BUN 21, creatinine 2.15. Troponin 1.04. White count 7.3, hemoglobin 12.0, hematocrit 37.7, platelet count 365. Patient's imaging studies reviewed. ASSESSMENT AND PLAN: 1. Nonoliguric acute kidney injury on top of chronic kidney disease, with history of nephrectomy. Patient's baseline renal function is around 1.5-2.6 mg/dL. Plan at this point is to check a urinalysis with microanalysis, check urine electrolytes. Otherwise, continue supportive care. Renally dose medications. Avoid nephrotoxins. 2. Anemia. Monitor H and H levels. 3. New assessment of bone disorder. Monitor calcium and phosphorus levels. 4. Status post vsi-[id number] myocardial infarction. Continue medical management. Follow up with Cardiology. 5. History of congestive heart failure. Patient appears euvolemic. Continue to monitor. 6. History of left nephrectomy for renal cell carcinoma. Continue to monitor. 7. Diabetes. Continue Accu-Cheks, insulin sliding scale. Thank you, Dr. Truong, for this interesting consult. It will be a pleasure to follow patient with you throughout the hospital course. Dictated By: Artemio Matos DO /elsie/ana /Document#: [id number]
--- NOTE | 2016-11-28 22:52 | CONS ---
DATE OF ADMISSION: 11/28/2016 DATE OF CONSULTATION: 11/28/2016 Thank you for your kind referral for evaluation of a stroke. HISTORY OF PRESENT ILLNESS: Patient is a 66-year-old gentleman with past medical history of ischemic cardiomyopathy, mitral regurgitation, diabetes, coronary artery disease, bladder cancer, renal carcinoma, status post nephrectomy, dyslipidemia, hypothyroidism, gout, hypertension, chronic kidney disease, and benign prostatic hypertrophy. He presented with complaints of dizziness and balance problems, which started about 4 days ago. He stated that his symptoms have gotten better. He was having numbness in the left upper and lower extremities, which has resolved since. CT scan showed small recent/subacute left cerebellar infarct. Patient was started on aspirin. PAST SURGICAL HISTORY: As above. SOCIAL HISTORY: Cigarette smoker. No drugs or alcohol use. FAMILY HISTORY: Diabetes. LABORATORY: In the hospital patient had also a chest x-ray, which shows no change, no acute abnormality. His labs show hemoglobin 12, hematocrit 37, normal WBCs and platelets. BUN 21, creatinine 2.0. Hemoglobin A1c 12.5. Troponin was elevated on admission, but the second one was negative. CK level was normal. Rest of basic metabolic panel within normal limits. Normal PT, PTT. Urinalysis: 1+ leukocyte esterase, 15 WBCs, and negative drug screen for drugs of abuse. MEDICATION: Prior to admission were: 1. Loratadine. 2. Nicotine patch. 3. Iron. 4. Atorvastatin 40. 5. Carvedilol. 6. Aspirin 81. 7. Bumetanide. 8. Colace. 9. L-thyroxine. 10. Vitamin D3. 11. Finasteride. Currently, he is on: 12. Aspirin. 13. Bumex. 14. Finasteride. 15. Loratadine. 16. Nicotine patch. 17. Insulin sliding scale. 18. L-thyroxine. 19. Iron. 20. Pepcid. 21. Atorvastatin was increased to 80. There is note of poor compliance with medications in the chart. ALLERGIES: HE IS ALLERGIC TO SULFA DRUGS AND LASIX. PHYSICAL EXAMINATION: VITAL SIGNS: Temperature 98.8, pulse 73, respirations 18, 112/71 blood pressure. GENERAL APPEARANCE: Not in acute distress, lying in bed. HEENT: Normocephalic, atraumatic head. NECK: No carotid bruits. No thyromegaly. LUNGS: Clear to auscultation bilaterally. CARDIAC: Normal cardiac rhythm and sounds. ABDOMEN: Soft, nontender. EXTREMITIES: No cyanosis, clubbing, or edema. NEUROLOGIC: He is awake, alert, and oriented x3, with fluent speech. Cranial nerve examination was intact, visual rubio bilaterally. Pupils reactive from 3-2 mm bilaterally. Extraocular movements intact, without nystagmus. Symmetrical face. Preserved facial strength and sensation. Tongue was in midline. Palate elevates symmetrically. Motor strength examination seemed to be preserved in all extremities. Normal bulk, tone, and strength. Sensory examination grossly intact to light touch and pain. Deep tendon reflexes 2+, upper extremities, absent in lower extremities. No definite response to plantar stimulation bilaterally. Coordination examination shows dysmetria in the left finger-to- finger testing. No tremors. Gait was not assessed. Patient states that he is able to ambulate with a walker. IMPRESSION: Acute ischemic stroke in the cerebellar location, per CT scan results 4 days ago, clinically improving. Continue aspirin. Keep patient normotensive, euglycemic. Continue high- dose statin. Continue physical therapy. PLAN: We will follow MRI results that are pending, given patient's history of malignancies and to exclude any other structural abnormality in the brain. Thank you very much for this interesting consultation. Dictated By: Kit Cummings MD /elsie/rizwan /Document#: [id number]
[2016-11-29] VITALS (11 sets, daily range): BP systolic 108–128; BP diastolic 68–81; PULSE 61–73; RESP 14–20
--- NOTE | 2016-11-29 00:38 | RADRPT ---
AMENDMENT: 11/29/2016 12:51:16 AM Lucho Francis MD ADDENDUM: Findings reported to nurse Essence on 11/29/2016 12:50:24 AM. PROCEDURE: MR Brain without contrast. CLINICAL INDICATION: Weakness TECHNIQUE: MRI brain without contrast was performed on a high field MRI system. Sequences include sagittal T1, axial T1, FLAIR, T2, diffusion and coronal GRE weighted. No contrast material was ut ilized. COMPARISON: CT brain 11/28/2016 . FINDINGS: There is age appropriate central and peripheral atrophy. There is no hydrocephalus. There is no mid line shift. There is a mild degree of supratentorial periventricular and subcortical white matter h yperintensities on FLAIR and T2-weighted images. There is an acute/subacute patchy non hemorrhagic i nfarct involving the superior left cerebellum with minimal edema and mass effect on the fourth ventr icle. There is no intracranial hemorrhage or abnormal extra-axial fluid collection. There is apple l signal intensity in the major dural venous sinuses. Foramen magnum is unremarkable. Visualized p aranasal sinuses are clear. IMPRESSION: 1. Patchy acute non-hemorrhagic infarct of the superior aspect left cerebellum with minimal mass ef fect on the fourth ventricle. 2. No acute hemorrhage. 3. Nonspecific white matter changes most commonly seen with small vessel disease. RPTAT: HMVK .Lucho Francis MD, Date Time Electronically viewed and signed by .Lucho Francis MD, on 11/29/2016 00:51 .K/
--- NOTE | 2016-11-29 00:45 | RADRPT ---
PROCEDURE: MRA Neck without contrast. CLINICAL INDICATION: Weakness TECHNIQUE: A MRA of the major arteries of the neck was performed on a high-field MR scanner utiliz ing axial 2D time of flight. No IV contrast was given as ordered. Source and 3-D angiographic image s were reviewed. COMPARISON: No prior studies are available for comparison. FINDINGS: Study limited by significant patient motion and lack of contrast material. The origin of the major v essels are not evaluated. The bilateral common carotid arteries and carotid bifurcations appear norm al in appearance without hemodynamically significant stenosis. The visualized proximal to mid cervic al internal carotid artery is unremarkable. The proximal to distal cervical vertebral arteries are p atent bilaterally. The vertebral arteries from level of C2 distally are poorly visualized likely due to artifact from tortuosity. IMPRESSION: Limited examination. No evidence for carotid bifurcation stenosis. Patent vertebral arteries to the level of the C2. Distal vertebral arteries are not adequately visualized. RPTAT: HMVK .Lucho Francis MD, Date Time Electronically viewed and signed by .Lucho Francis MD, on 11/29/2016 00:44 .K/
--- NOTE | 2016-11-29 00:50 | RADRPT ---
PROCEDURE: MR Angio brain without contrast CLINICAL INDICATION: Weakness TECHNIQUE: 3D time of flight magnetic resonance angiography of the brain was performed without IV c ontrast material. 3D angiographic reconstruction images were created in multiple obliquities. COMPARISON: MRI brain 11/28/2016 FINDINGS: All major intracranial arteries are identified. The distal vertebral arteries are patent bilaterally . The basilar artery and bilateral posterior cerebral arteries are normal appearance. Both superior cerebellar arteries are patent. The anterior circulation is intact. The internal carotid arteries, b ilateral middle and anterior cerebral arteries are patent. There is mild stenosis of the bilateral m iddle cerebral artery trifurcation vessels and proximal A2 segment of the right anterior cerebral ar yudy. No aneurysm or vascular malformation is identified. No occlusion is identified. IMPRESSION: 1. Patent vertebral basilar system. 2. Patent bilateral superior cerebellar arteries identified. 3. Mild stenoses of the bilateral middle cerebral artery trifurcation branches and proximal A2 segm ent of the right anterior cerebral artery. No focal occlusion identified. 4. No evidence for aneurysm or vascular malformation. RPTAT: HMVK .Lucho Francis MD, MD Date Time Electronically viewed and signed by .Lucho Francis MD, on 11/29/2016 00:49 .K/
[2016-11-29] MEDS: ACCU-CHEK XX SCH (02:00)
[2016-11-29 02:25] LABS: CREATINE KINASE 159 IU/L (23-200)
[2016-11-29 02:38] LABS: CK-MB 1.37 ng/ml (0.0-2.4); TROPONIN-I < 0.012 ng/ml (0.00-0.12)
[2016-11-29 07:13] LABS: BASOPHILS % 0.6 % (0.0-2.0); EOSINOPHILS # 0.2 10^3/ul (0.0-0.5); EOSINOPHILS % 3.2 % (0.0-7.0); HEMATOCRIT 35.6 % (42.0-52.0); HEMOGLOBIN 11.3 g/dl (14.0-18.0); LYMPHOCYTES # 1.4 10^3/ul (0.8-2.9); LYMPHOCYTES % 19.5 % (15.0-51.0); MEAN CORPUSCULAR HEMOGLOBIN 28.5 pg (29.0-33.0); MEAN CORPUSCULAR HGB CONC 31.7 g/dl (32.0-37.0); MEAN CORPUSCULAR VOLUME 89.7 fl (82.0-101.0); MEAN PLATELET VOLUME 10.5 fl (7.4-10.4); MONOCYTE # 0.9 10^3/ul (0.3-0.9); MONOCYTES % 13.5 % (0.0-11.0); NEUTROPHIL # 4.4 10^3/ul (1.6-7.5); NEUTROPHILS % 62.8 % (39.0-77.0); PLATELET COUNT 330 10^3/UL (140-415); RED BLOOD COUNT 3.97 10^6/ul (4.70-6.10); RED CELL DISTRIBUTION WIDTH 18.9 % (11.5-14.5)
[2016-11-29 07:34] LABS: IRON 23 ug/dl (35-150)
[2016-11-29] MEDS: INSULIN ASPART [NOVOLOG] 3 ML PEN SC SCH ×4 (07:35→20:59)
[2016-11-29 07:37] LABS: ALBUMIN 3.4 g/dl (3.3-4.9); ALBUMIN/GLOBULIN RATIO 0.82; BILIRUBIN,INDIRECT 0.1 mg/dl (0-1.1); BILIRUBIN,TOTAL 0.1 mg/dl (0.2-1.3); CALCIUM 9.6 mg/dl (8.4-10.2); CHOL/HDL RATIO 7.4 RATIO; CREATININE 2.05 mg/dl (0.61-1.24); MAGNESIUM 2.2 mg/dl (1.7-2.5); PHOSPHORUS 4.8 mg/dl (2.5-4.9); POTASSIUM 4.3 mmol/L (3.5-5.1); TOTAL PROTEIN 7.5 g/dl (6.1-8.1)
[2016-11-29 07:46] LABS: TOTAL IRON BINDING CAPACITY 305 ug/dl (241-421)
[2016-11-29] MEDS: INSULIN GLARGINE [LANtus] 3 ML PEN SC SCH (08:00)
[2016-11-29 08:06] LABS: THYROID STIMULATING HORMONE 2.55 MIU/L (0.465-4.680)
[2016-11-29] MEDS: LEVOTHYROXINE 25 MCG TAB PO SCH (08:25)
--- NOTE | 2016-11-29 10:22 | PN ---
DATE: 11/29/2016 SUBJECTIVE: The patient is complaining about headaches, blurred vision. No other events noted. No hemoptysis, hematemesis or hematochezia. OBJECTIVE: VITAL SIGNS: Blood pressure is 112/70, respirations 20, pulse 61, temperature 98.2. HEENT: Head is normocephalic. NECK: Supple. HEART: Regular rate. LUNGS: Show diminished breath sounds at the base. ABDOMEN: Soft, nontender to palpation without rebound or guarding. EXTREMITIES: Negative for clubbing, cyanosis. Trace edema. DERMATOLOGIC: No rashes. MUSCULOSKELETAL: No joint effusions. NEUROLOGIC: Limited exam, the patient does have possible right-sided weakness. LABORATORY DATA: Sodium 142, potassium 4.3, chloride 107, BUN 23, creatinine 2.05. White count 7.0 , hemoglobin 9.3, hematocrit 35.6, platelet count 330. ASSESSMENT AND PLAN: 1. Nonoliguric acute kidney injury on top of chronic kidney disease with a history nephrectomy, wit h a previous baseline creatinine around 1.5 to 2.6 mg/dL. The patient's renal function appears to b e stable, may be at baseline. At this point, would continue current treatment plan, supportive care , renally dose all meds, avoid nephrotoxins. 2. Anemia. Monitor hemoglobin and hematocrit levels. 3. Mineral bone disease. Monitor calcium and phosphorus levels. 4. Elevated troponin. Per cardiology, this may have been spurious. Continue to monitor. 5. History of congestive heart failure. The patient appears euvolemic. Continue medical managemen t. 6. History of left nephrectomy for renal cell carcinoma. Continue to monitor. 7. Diabetes. Continue Accu-Cheks, insulin sliding scale. 8. Possible cerebrovascular accident. The patient has new onset weakness, blurry vision. The konrad ent had a CT scan and MRI of the brain which showed infarct in the superior aspect of left cerebellu m. At this point, continue current medical management. Follow up with neurology. Dictated By: LUC LIMA/MP Conf#: [id number] DID#: [id number]
[2016-11-29] MEDS: FINASTERIDE 5 MG TAB PO SCH (10:45)
[2016-11-29] MEDS: DOCUSATE SODIUM 250 MG CAP PO SCH ×2 (10:45→20:48)
[2016-11-29] MEDS: LORATADINE 10 MG TAB PO SCH (10:45)
[2016-11-29] MEDS: HEPARIN 5,000 UNIT/0.5 ML VIAL SC SCH ×2 (10:45→20:51)
[2016-11-29] MEDS: ASPIRIN 81 MG TAB PO SCH (10:45)
[2016-11-29] MEDS: FERROUS GLUCONATE (EC) 325 MG TAB PO SCH (10:45)
[2016-11-29] MEDS: NICOTINE (21 MG/24 HR) PATCH TRANSDERM SCH (10:45)
[2016-11-29] MEDS: BUMETANIDE 1 MG TAB PO SCH (10:45)
[2016-11-29] MEDS: CHOLECALCIFEROL 1,000 UNIT TAB PO SCH (10:45)
[2016-11-29] MEDS: MULTIVITAMINS THERAPEUTIC TAB PO SCH (10:45)
--- NOTE | 2016-11-29 11:40 | PN ---
Date/Time of Note Date/Time of Note DATE: 11/29/16 TIME: 11:40 Assessment/Plan VTE Prophylaxis VTE Prophylaxis Intervention: heparin Lines/Catheters IV [facility]from [facility] Saline Lock Assessment/Plan Chief Complaint/Hosp Course 66-year-old obese -[place] male, presented to the emergency room for evaluation of sudden onset of dizziness with off-balance 3 day duration. NEURO: (1)Acute nonhemorrhagic CVA, out of TPA window. 11/29/2016. MR angiogram brain WO contrast: Mild stenoses of the bilateral middle cerebral artery trifurcation branches and proximal A2 segment of the right anterior cerebral artery. No focal occlusion identified. I: MRI Brain: Patchy acute non-hemorrhagic infarct of the superior aspect left cerebellum with minimal mass effect on the fourth ventricle.No acute hemorrhage. 11/29/2016. MRA Neck: No evidence for carotid bifurcation stenosis. Patent vertebral arteries PLAN: -Continue with antiplatelets-deferred neurology for adding Plavix if indicated, diabetic management, lipid lowering, blood pressure management -Rehabilitation with, PT/OT/ST evaluation and treatment. CARDS: (1) Elevated troponin in the absence of chest pain:False negative test??- consecutive trops are normal which makes it low suspicion for poor renal clearance.Another possibility is transient elevation of trop in acute phase of stroke. -Cardiology evaluation appreciated. -Continue with aspirin prophylaxis. (2)Essential hypertension. -Continue home medications. (3)Hypercholesterolemia. -Continue statin. (4)Ischemic cardiomyopathy. -Continue home medications. Obtain 2D echocardiogram. RENAL: (1)Chronic kidney disease. Creatinine appears baseline. -Nephrology input greatly appreciated. Monitor renal function closely and renally dose medications. (2)Hx of RCC-Status post left nephrectomy. ENDO (1)DM II-poorly controlled. A1c 12.5. Good glycemic control. -Continue with Accu-Cheks/ISS/Lantus based on weight. -Diabetic education, carb controlled diet. (2)Hypothyroidism. -Continue Synthroid. INFECTIOUS: (1)Possible urinary tract infection. UA suggestive. -F/u cultures. Empiric antibiotics. HEME: (1)Iron deficiency anemia. -Continue oral iron replacement. HSQ Prophylaxis Patient was seen in collaboration with . Problems: Subjective 24 Hr Interval Summary Free Text/Dictation Patient lying in bed comfortably. He continues to report left upper arm numbness. Able to move all 4 extremities. Denies headache, confusion, vision changes, speech difficulties or other distress. Exam/Review of Systems Vital Signs Vitals Vital Signs Date Time Temp Pulse Resp B/P Pulse Ox O2 Delivery O2 Flow Rate FiO2 11/29/16 08:31 98.2 61 20 112/70 96 Room Air Exam General: Disheveled obese -[place] male, not in any acute distress . HEENT: Normocephalic, Atraumatic, No laceration or hematoma; Eyes: PEERL, Conjunctiva clear, Anicteric sclera Neck: Supple without any lymphadenopathy, nontender, no JVD, no carotid bruits, trachea midline, no thyromegaly Cardiac: S1, S2 auscultated, regular rhythm and rate, no mumurs or gallop Pulmonary: Normal respiratory effort. Chest clear to auscultation bilaterally, no adventitious breath sounds GI: Abdomen normal to inspection. Soft, non tender, non- distended, no masses, no rebound tenderness or guarding. Bowel sounds active on all four quadrants Genitourinary: Deferred Extremities: No cyanosis, clubbing, or edema. Pulses [2+] bilaterally. Full ROM on all four extremities. No focal weakness appreciated. Neurologic: Alert to person, place, time, and situation. Affect appropriate, intact sensation. Skin: Chronic vascular changes/hyperpigmentation on bilateral lower extremities. Results Result Diagram: 11/29/16 0637 11/29/16 0637 Results 24 hrs Laboratory Tests Test 11/28/16 12:00 11/28/16 19:19 11/28/16 20:45 11/29/16 02:00 White Blood Count 7.3 # Red Blood Count 4.26 #L Hemoglobin 12.0 #L Hematocrit 37.5 #L Mean Corpuscular Volume 88.0 Mean Corpuscular Hemoglobin 28.2 L Mean Corpuscular Hemoglobin Concent 32.0 Red Cell Distribution Width 19.2 #H Platelet Count 365 Mean Platelet Volume 10.0 Neutrophils % 69.9 Lymphocytes % 16.8 Monocytes % 10.4 Eosinophils % 2.3 Basophils % 0.3 Nucleated Red Blood Cells % 0.0 Neutrophils # 5.1 Lymphocytes # 1.2 Monocytes # 0.8 Eosinophils # 0.2 Basophils # 0.0 Nucleated Red Blood Cells # 0.0 Prothrombin Time 13.7 Prothrombin Time Ratio 1.1 INR International Normalized Ratio 1.05 Activated Partial Thromboplast Time 26.4 Urine Color YELLOW Urine Clarity CLEAR Urine pH 5.0 Urine Specific Parrott 1.011 Urine Ketones NEGATIVE Urine Nitrite NEGATIVE Urine Bilirubin NEGATIVE Urine Urobilinogen NEGATIVE Urine Leukocyte Esterase 1+ H Urine Microscopic RBC 5 Urine Microscopic WBC 15 H Urine Bacteria MODERATE Urine Hemoglobin 1+ H Urine Glucose NEGATIVE Urine Total Protein NEGATIVE Sodium Level 141 Potassium Level 3.7 Chloride Level 109 Carbon Dioxide Level 24 Anion Gap 12 Blood Urea Nitrogen 21 H Creatinine 2.05 H Glucose Level 118 Hemoglobin A1c 12.5 H Calcium Level 9.0 Troponin I 1.040 *H < 0.012 < 0.012 Urine Opiates Screen NEGATIVE Urine Barbiturates NEGATIVE Urine Amphetamines Screen NEGATIVE Urine Benzodiazepines Screen NEGATIVE Urine Cocaine Screen NEGATIVE Urine Cannabinoids NEGATIVE Bedside Glucose 113 Creatine Kinase 155 159 Creatine Kinase Index 1.0 0.9 Creatinine Kinase MB (Mass) 1.49 1.37 Test 11/29/16 06:37 11/29/16 08:14 White Blood Count 7.0 Red Blood Count 3.97 L Hemoglobin 11.3 L Hematocrit 35.6 L Mean Corpuscular Volume 89.7 Mean Corpuscular Hemoglobin 28.5 L Mean Corpuscular Hemoglobin Concent 31.7 L Red Cell Distribution Width 18.9 H Platelet Count 330 Mean Platelet Volume 10.5 H Neutrophils % 62.8 Lymphocytes % 19.5 Monocytes % 13.5 H Eosinophils % 3.2 Basophils % 0.6 Nucleated Red Blood Cells % 0.0 Neutrophils # 4.4 Lymphocytes # 1.4 Monocytes # 0.9 Eosinophils # 0.2 Basophils # 0.0 Nucleated Red Blood Cells # 0.0 Sodium Level 142 Potassium Level 4.3 Chloride Level 107 Carbon Dioxide Level 29 Anion Gap 10 Blood Urea Nitrogen 23 H Creatinine 2.05 H Glucose Level 121 Calcium Level 9.6 Phosphorus Level 4.8 Magnesium Level 2.2 Iron Level 23 L Total Iron Binding Capacity 305 Percent Iron Saturation 8 L Total Bilirubin 0.1 L Direct Bilirubin 0.00 Indirect Bilirubin 0.1 Aspartate Amino Transf (AST/SGOT) 16 Alanine Aminotransferase (ALT/SGPT) 23 Alkaline Phosphatase 78 Total Protein 7.5 Albumin 3.4 Globulin 4.10 H Albumin/Globulin Ratio 0.82 Triglycerides Level 172 H Cholesterol Level 186 LDL Cholesterol, Calculated 127 HDL Cholesterol 25 L Cholesterol/HDL Ratio 7.4 Thyroid Stimulating Hormone (TSH) 2.550 Bedside Glucose 129 Medications Medications Current Medications Aspirin (Aspirin) 81 mg DAILY PO Last administered on 11/29/16 10:45; Admin Dose 81 MG; Start 11/29/16 at 09:00 Bumetanide (Bumex) 1 mg DAILY PO Last administered on 11/29/16 10:45; Admin Dose 1 MG; Start 11/29/16 at 09:00 Carvedilol (Coreg) 12.5 mg BID PO Last administered on 11/29/16 10:45; Admin Dose 12.5 MG; Start 11/28/16 at 21:00 Cholecalciferol (Vitamin D) 1,000 unit DAILY PO Last administered on 11/29/16 10:45; Admin Dose 1,000 UNIT; Start 11/29/16 at 09:00 Docusate Sodium (Colace) 250 mg BID PO Last administered on 11/29/16 10:45; Admin Dose 250 MG; Start 11/28/16 at 21:00 Finasteride (Proscar) 5 mg DAILY PO Last administered on 11/29/16 10:45; Admin Dose 5 MG; Start 11/29/16 at 09:00 Loratadine (Claritin) 10 mg DAILY PO Last administered on 11/29/16 10:45; Admin Dose 10 MG; Start 11/29/16 at 09:00 Multivitamins Therapeutic (Theragran) 1 tab DAILY PO Last administered on 10:45; Admin Dose 1 TAB; Start 11/29/16 at 09:00 Nicotine (Nicoderm 21 Mg/ 24hr) 1 patch DAILY TRANSDERM Last administered on 10:45; Admin Dose 1 PATCH; Start 11/29/16 at 09:00 Ferrous Gluconate (Fergon) 325 mg BID PO Last administered on 11/29/16 10:45; Admin Dose 325 MG; Start 11/28/16 at 21:00 Ondansetron HCl (Zofran Inj) 4 mg Q6H PRN IV NAUSEA AND/OR VOMITING; Start 11/28/16 at 14:00 Acetaminophen (Tylenol Tab) 650 mg Q6H PRN PO PAIN LEVEL 1-3 OR FEVER; Start 11/28/16 at 14:00 Acetaminophen (Tylenol Supp) 650 mg Q6H PRN [place] PAIN LEVEL 1-3 OR FEVER; Start 11/28/16 at 14:00 Morphine Sulfate (morphine) 2 mg Q4H PRN IV SEVERE PAIN LEVEL 7-10; Start 11/28 at 14:00 Famotidine (Pepcid) 20 mg Q24H PO Last administered on 11/28/16 22:07; Admin Dose 20 MG; Start 11/28/16 at 21:00 Heparin Sodium (Porcine) (Heparin (5000 Units/0.5 ml)) 5,000 unit Q12 SC Last administered on 11/29/16 10:45; Admin Dose 5,000 UNIT; Start 11/28/16 at 21:00 Diagnostic Test (Pha) (Accu-Chek) 1 ea 02 XX ; Start 11/29/16 at 02:00 Insulin Glargine (Lantus) 20 unit DAILY@08 SC ; Start 11/29/16 at 08:00 Atorvastatin Calcium (Lipitor) 80 mg HS PO Last administered on 11/28/16 22:08 ; Admin Dose 80 MG; Start 11/28/16 at 21:00 Miscellaneous Information 1 ea NOTE XX ; Start 11/28/16 at 15:00 Glucose (Glutose) 15 gm Q15M PRN PO DECREASED GLUCOSE; Start 11/28/16 at 15:00 Glucose (Glutose) 22.5 gm Q15M PRN PO DECREASED GLUCOSE; Start 11/28/16 at 15: 00 Dextrose (D50w Syringe) 25 ml Q15M PRN IV DECREASED GLUCOSE; Start 11/28/16 at 15:00 Dextrose (D50w Syringe) 50 ml Q15M PRN IV DECREASED GLUCOSE; Start 11/28/16 at 15:00 Glucagon (Glucagen) 1 mg Q15M PRN IM DECREASED GLUCOSE; Start 11/28/16 at 15:00 Glucose (Glutose) 15 gm Q15M PRN BUCCAL DECREASED GLUCOSE; Start 11/28/16 at 15 :00 VICENTA CARNES NP Nov 29, 2016 11:40
--- NOTE | 2016-11-29 12:24 | CONS ---
Date/Time of Note Date/Time of Note DATE: 11/29/16 TIME: 12:20 Consult Date/Type/Reason Admit Date/Time Nov 28, 2016 at 12:57 Initial Consult Date 11/28/16 Type of Consultation: Neurology Reason for Consultation CVA Ordering Provider: VICENTA CARNES NP Subjective improving left sided weakness no new complaints Objective Vital Signs Date Time Temp Pulse Resp B/P Pulse Ox O2 Delivery O2 Flow Rate FiO2 11/29/16 12:08 69 11/29/16 11:54 97.4 16 128/76 98 Room Air Results/Medications Result Diagram: 11/29/16 0637 11/29/16 0637 Results 24 hrs Laboratory Tests Test 11/28/16 19:19 11/28/16 20:45 11/29/16 02:00 11/29/16 06:37 Bedside Glucose 113 Creatine Kinase 155 159 Creatine Kinase Index 1.0 0.9 Creatinine Kinase MB (Mass) 1.49 1.37 Troponin I < 0.012 < 0.012 White Blood Count 7.0 Red Blood Count 3.97 L Hemoglobin 11.3 L Hematocrit 35.6 L Mean Corpuscular Volume 89.7 Mean Corpuscular Hemoglobin 28.5 L Mean Corpuscular Hemoglobin Concent 31.7 L Red Cell Distribution Width 18.9 H Platelet Count 330 Mean Platelet Volume 10.5 H Neutrophils % 62.8 Lymphocytes % 19.5 Monocytes % 13.5 H Eosinophils % 3.2 Basophils % 0.6 Nucleated Red Blood Cells % 0.0 Neutrophils # 4.4 Lymphocytes # 1.4 Monocytes # 0.9 Eosinophils # 0.2 Basophils # 0.0 Nucleated Red Blood Cells # 0.0 Sodium Level 142 Potassium Level 4.3 Chloride Level 107 Carbon Dioxide Level 29 Anion Gap 10 Blood Urea Nitrogen 23 H Creatinine 2.05 H Glucose Level 121 Calcium Level 9.6 Phosphorus Level 4.8 Magnesium Level 2.2 Iron Level 23 L Total Iron Binding Capacity 305 Percent Iron Saturation 8 L Total Bilirubin 0.1 L Direct Bilirubin 0.00 Indirect Bilirubin 0.1 Aspartate Amino Transf (AST/SGOT) 16 Alanine Aminotransferase (ALT/SGPT) 23 Alkaline Phosphatase 78 Total Protein 7.5 Albumin 3.4 Globulin 4.10 H Albumin/Globulin Ratio 0.82 Triglycerides Level 172 H Cholesterol Level 186 LDL Cholesterol, Calculated 127 HDL Cholesterol 25 L Cholesterol/HDL Ratio 7.4 Thyroid Stimulating Hormone (TSH) 2.550 Test 11/29/16 08:14 11/29/16 11:53 Bedside Glucose 129 166 Medications Current Medications Aspirin (Aspirin) 81 mg DAILY PO Last administered on 11/29/16 10:45; Admin Dose 81 MG; Start 11/29/16 at 09:00 Bumetanide (Bumex) 1 mg DAILY PO Last administered on 11/29/16 10:45; Admin Dose 1 MG; Start 11/29/16 at 09:00 Carvedilol (Coreg) 12.5 mg BID PO Last administered on 11/29/16 10:45; Admin Dose 12.5 MG; Start 11/28/16 at 21:00 Cholecalciferol (Vitamin D) 1,000 unit DAILY PO Last administered on 11/29/16 10:45; Admin Dose 1,000 UNIT; Start 11/29/16 at 09:00 Docusate Sodium (Colace) 250 mg BID PO Last administered on 11/29/16 10:45; Admin Dose 250 MG; Start 11/28/16 at 21:00 Finasteride (Proscar) 5 mg DAILY PO Last administered on 11/29/16 10:45; Admin Dose 5 MG; Start 11/29/16 at 09:00 Loratadine (Claritin) 10 mg DAILY PO Last administered on 11/29/16 10:45; Admin Dose 10 MG; Start 11/29/16 at 09:00 Multivitamins Therapeutic (Theragran) 1 tab DAILY PO Last administered on 10:45; Admin Dose 1 TAB; Start 11/29/16 at 09:00 Nicotine (Nicoderm 21 Mg/ 24hr) 1 patch DAILY TRANSDERM Last administered on 10:45; Admin Dose 1 PATCH; Start 11/29/16 at 09:00 Ferrous Gluconate (Fergon) 325 mg BID PO Last administered on 11/29/16 10:45; Admin Dose 325 MG; Start 11/28/16 at 21:00 Ondansetron HCl (Zofran Inj) 4 mg Q6H PRN IV NAUSEA AND/OR VOMITING; Start 11/28/16 at 14:00 Acetaminophen (Tylenol Tab) 650 mg Q6H PRN PO PAIN LEVEL 1-3 OR FEVER; Start 11/28/16 at 14:00 Acetaminophen (Tylenol Supp) 650 mg Q6H PRN [place] PAIN LEVEL 1-3 OR FEVER; Start 11/28/16 at 14:00 Morphine Sulfate (morphine) 2 mg Q4H PRN IV SEVERE PAIN LEVEL 7-10; Start 11/28 at 14:00 Famotidine (Pepcid) 20 mg Q24H PO Last administered on 11/28/16 22:07; Admin Dose 20 MG; Start 11/28/16 at 21:00 Heparin Sodium (Porcine) (Heparin (5000 Units/0.5 ml)) 5,000 unit Q12 SC Last administered on 11/29/16 10:45; Admin Dose 5,000 UNIT; Start 11/28/16 at 21:00 Diagnostic Test (Pha) (Accu-Chek) 1 ea 02 XX ; Start 11/29/16 at 02:00 Insulin Glargine (Lantus) 20 unit DAILY@08 SC ; Start 11/29/16 at 08:00 Atorvastatin Calcium (Lipitor) 80 mg HS PO Last administered on 11/28/16 22:08 ; Admin Dose 80 MG; Start 11/28/16 at 21:00 Miscellaneous Information 1 ea NOTE XX ; Start 11/28/16 at 15:00 Glucose (Glutose) 15 gm Q15M PRN PO DECREASED GLUCOSE; Start 11/28/16 at 15:00 Glucose (Glutose) 22.5 gm Q15M PRN PO DECREASED GLUCOSE; Start 11/28/16 at 15: 00 Dextrose (D50w Syringe) 25 ml Q15M PRN IV DECREASED GLUCOSE; Start 11/28/16 at 15:00 Dextrose (D50w Syringe) 50 ml Q15M PRN IV DECREASED GLUCOSE; Start 11/28/16 at 15:00 Glucagon (Glucagen) 1 mg Q15M PRN IM DECREASED GLUCOSE; Start 11/28/16 at 15:00 Glucose (Glutose) 15 gm Q15M PRN BUCCAL DECREASED GLUCOSE; Start 11/28/16 at 15 :00 Assessment/Plan Chief Complaint/Hosp Course Cerebellar CVA clinically improved, MRI confirms left cerebellar superior region minimal mass effect small vessel disease Recommend: continue antiplatelet ECHO pending to eval for cardiac source continue high dose statin maintain euglycemia, afebrile DVT ppx PT/OT/Speech fu Problems: ЕЛЕНА HOOVER MD Nov 29, 2016 12:24
[2016-11-29] MEDS: CEFTRIAXONE 1 GM/50 ML (PMX) 50 ML IVPB SCH (13:28)
--- NOTE | 2016-11-29 14:04 | CONS ---
Date/Time of Note Date/Time of Note DATE: 11/29/16 TIME: 14:01 Assessment/Plan Assessment/Plan Chief Complaint/Hosp Course NSTEMI: Now that there are three total trop values, this was likely a lab error or was someone else's labwork. Physiologically it is not possible to have a trop of 1.0 and have two subsequent completely normal values especially in the setting of renal disease. This is further supported by the lack of symptoms and the fact that the pt is here for a completely different reason. As such no further cardiac workup necessary at this time. . Subacute cerebellar CVA: Possibly cardiogenic but also a vasculopath. Echo to eval for cardiac source CAD s/p prior PCI CHF: unknown EF. Currently euvolemic Left nephrectomy for RCC CKD: Last Cr 03/14 was 2.6, now 2.0 Uncontrolled DM Med non-compliance -ASA -lipitor -coreg -bumex to keep even (?home med) -f/u echo Problems: Consultation Date/Type/Reason Admit Date/Time Nov 28, 2016 at 12:57 Initial Consult Date 11/28/16 Type of Consultation: Cardiology Referring Provider: VICENTA CARNES NP 24 HR Interval Summary Free Text/Dictation No o/n events. Initial trop 1.0, now <0.012 x 2 No chest pain or SOB Exam/Review of Systems Vital Signs Vitals Vital Signs Date Time Temp Pulse Resp B/P Pulse Ox O2 Delivery O2 Flow Rate FiO2 11/29/16 12:08 69 11/29/16 11:54 97.4 16 128/76 98 Room Air Exam Constitutional: alert, oriented Psych: no complaints Head: atraumatic, normocephalic Neck: supple, No jvd Respiratory: clear to auscultation, No crackles/rales Cardiovascular: regular rate and rhythm, No edema Gastrointestinal: soft Neurological: nl mental status, nl speech Results Result Diagram: 11/29/16 0637 11/29/16 0637 Results 24 hrs Laboratory Tests Test 11/28/16 19:19 11/28/16 20:45 11/29/16 02:00 11/29/16 06:37 Bedside Glucose 113 Creatine Kinase 155 159 Creatine Kinase Index 1.0 0.9 Creatinine Kinase MB (Mass) 1.49 1.37 Troponin I < 0.012 < 0.012 White Blood Count 7.0 Red Blood Count 3.97 L Hemoglobin 11.3 L Hematocrit 35.6 L Mean Corpuscular Volume 89.7 Mean Corpuscular Hemoglobin 28.5 L Mean Corpuscular Hemoglobin Concent 31.7 L Red Cell Distribution Width 18.9 H Platelet Count 330 Mean Platelet Volume 10.5 H Neutrophils % 62.8 Lymphocytes % 19.5 Monocytes % 13.5 H Eosinophils % 3.2 Basophils % 0.6 Nucleated Red Blood Cells % 0.0 Neutrophils # 4.4 Lymphocytes # 1.4 Monocytes # 0.9 Eosinophils # 0.2 Basophils # 0.0 Nucleated Red Blood Cells # 0.0 Sodium Level 142 Potassium Level 4.3 Chloride Level 107 Carbon Dioxide Level 29 Anion Gap 10 Blood Urea Nitrogen 23 H Creatinine 2.05 H Glucose Level 121 Calcium Level 9.6 Phosphorus Level 4.8 Magnesium Level 2.2 Iron Level 23 L Total Iron Binding Capacity 305 Percent Iron Saturation 8 L Total Bilirubin 0.1 L Direct Bilirubin 0.00 Indirect Bilirubin 0.1 Aspartate Amino Transf (AST/SGOT) 16 Alanine Aminotransferase (ALT/SGPT) 23 Alkaline Phosphatase 78 Total Protein 7.5 Albumin 3.4 Globulin 4.10 H Albumin/Globulin Ratio 0.82 Triglycerides Level 172 H Cholesterol Level 186 LDL Cholesterol, Calculated 127 HDL Cholesterol 25 L Cholesterol/HDL Ratio 7.4 Thyroid Stimulating Hormone (TSH) 2.550 Test 11/29/16 08:14 11/29/16 11:53 Bedside Glucose 129 166 Medications Medications Current Medications Aspirin (Aspirin) 81 mg DAILY PO Last administered on 11/29/16 10:45; Admin Dose 81 MG; Start 11/29/16 at 09:00 Bumetanide (Bumex) 1 mg DAILY PO Last administered on 11/29/16 10:45; Admin Dose 1 MG; Start 11/29/16 at 09:00 Carvedilol (Coreg) 12.5 mg BID PO Last administered on 11/29/16 10:45; Admin Dose 12.5 MG; Start 11/28/16 at 21:00 Cholecalciferol (Vitamin D) 1,000 unit DAILY PO Last administered on 11/29/16 10:45; Admin Dose 1,000 UNIT; Start 11/29/16 at 09:00 Docusate Sodium (Colace) 250 mg BID PO Last administered on 11/29/16 10:45; Admin Dose 250 MG; Start 11/28/16 at 21:00 Finasteride (Proscar) 5 mg DAILY PO Last administered on 11/29/16 10:45; Admin Dose 5 MG; Start 11/29/16 at 09:00 Loratadine (Claritin) 10 mg DAILY PO Last administered on 11/29/16 10:45; Admin Dose 10 MG; Start 11/29/16 at 09:00 Multivitamins Therapeutic (Theragran) 1 tab DAILY PO Last administered on 10:45; Admin Dose 1 TAB; Start 11/29/16 at 09:00 Nicotine (Nicoderm 21 Mg/ 24hr) 1 patch DAILY TRANSDERM Last administered on 10:45; Admin Dose 1 PATCH; Start 11/29/16 at 09:00 Ferrous Gluconate (Fergon) 325 mg BID PO Last administered on 11/29/16 10:45; Admin Dose 325 MG; Start 11/28/16 at 21:00 Ondansetron HCl (Zofran Inj) 4 mg Q6H PRN IV NAUSEA AND/OR VOMITING; Start 11/28/16 at 14:00 Acetaminophen (Tylenol Tab) 650 mg Q6H PRN PO PAIN LEVEL 1-3 OR FEVER; Start 11/28/16 at 14:00 Acetaminophen (Tylenol Supp) 650 mg Q6H PRN [place] PAIN LEVEL 1-3 OR FEVER; Start 11/28/16 at 14:00 Morphine Sulfate (morphine) 2 mg Q4H PRN IV SEVERE PAIN LEVEL 7-10; Start 11/28 at 14:00 Famotidine (Pepcid) 20 mg Q24H PO Last administered on 11/28/16 22:07; Admin Dose 20 MG; Start 11/28/16 at 21:00 Heparin Sodium (Porcine) (Heparin (5000 Units/0.5 ml)) 5,000 unit Q12 SC Last administered on 11/29/16 10:45; Admin Dose 5,000 UNIT; Start 11/28/16 at 21:00 Diagnostic Test (Pha) (Accu-Chek) 1 ea 02 XX ; Start 11/29/16 at 02:00 Insulin Glargine (Lantus) 20 unit DAILY@08 SC ; Start 11/29/16 at 08:00 Atorvastatin Calcium (Lipitor) 80 mg HS PO Last administered on 11/28/16 22:08 ; Admin Dose 80 MG; Start 11/28/16 at 21:00 Miscellaneous Information 1 ea NOTE XX ; Start 11/28/16 at 15:00 Glucose (Glutose) 15 gm Q15M PRN PO DECREASED GLUCOSE; Start 11/28/16 at 15:00 Glucose (Glutose) 22.5 gm Q15M PRN PO DECREASED GLUCOSE; Start 11/28/16 at 15: 00 Dextrose (D50w Syringe) 25 ml Q15M PRN IV DECREASED GLUCOSE; Start 11/28/16 at 15:00 Dextrose (D50w Syringe) 50 ml Q15M PRN IV DECREASED GLUCOSE; Start 11/28/16 at 15:00 Glucagon (Glucagen) 1 mg Q15M PRN IM DECREASED GLUCOSE; Start 11/28/16 at 15:00 Glucose 15 gm 15 gm Q15M PRN BUCCAL DECREASED GLUCOSE; Start 11/28/16 at 15:00 Ceftriaxone Sodium (Rocephin) 50 ml @ 100 mls/hr Q24H IVPB Last administered on 11/29/16 13:28; Admin Dose 100 MLS/HR; Start 11/29/16 at 13:00 YELENA VÁZQUEZ Nov 29, 2016 14:04
--- NOTE | 2016-11-29 18:37 | RADRPT ---
Echocardiogram Report Patient Name: TAMAR TATE Gender: Male Date: 1950 Study Date: 29-Nov-2016 Test Deck Supervisor: Lakshmi Burton [facility] Location: [facility] Ref. Physician: VICENTA CARNES Quality: Technically Difficult Study Procedures: Transthoracic echocardiogram with complete 2D, M-Mode, and doppler examination. Indications: Elevated troponin. 2D/M Mode Doppler Measurement Value Normal Ranges Measurement Value Normal Ranges LVIDd 2D 5.2 3.5 - 5.6 cm AV Peak Porfirio 1.4 m/sec LVIDs 2D 2.6 2.1 - 4.1 cm AV Peak PG 7.5 mmHg LVPWd 2D 1.4 0.6 - 1.1 cm LVOT Peak Porfirio 1.2 m/sec IVSd 2D 1.6 0.6 - 1.1 cm LVOT Peak PG 5.7 mmHg AoR Diam 2D 2.9 2.0 - 3.7 cm MV E Peak Porfirio 0.5 m/sec EDV 2D 130.5 cm3 MV A Peak Porfirio 0.9 m/sec ESV 2D 16.7 cm3 MV E/A 0.6 LA Dimen 2D 2.7 2.3 - 4.0 cm MV Decel Time 246 msec MV Decel Loup 2 MV E/A 0.6 TR Peak Porfirio 2.3 m/sec TR Peak PG 20.3 mmHg RVSP 23.0 mmHg Findings Left Ventricle: Mild concentric left ventricular hypertrophy. Mild enlargement of left ventricle cavity. Mild left ventricular systolic dysfunction. Ejection fraction is visually estimated at 4045 %. Tissue Doppler/Mitral Doppler indices are consistent with impaired relaxation (Stage I diastolic dysfunction). Resting Segmental Wall Motion Analysis: Possible hypokinesis of the septum and inferior jenkins though very poorly seen. Right Ventricle: Normal right ventricular size. Normal right ventricular systolic function. Left Atrium: There is mild enlargement of left atrium. Right Atrium: The right atrium is normal in size. Mitral Valve: Normal appearance of the mitral valve. Mild mitral valve regurgitation. Aortic Valve: No significant aortic stenosis or insufficiency. Aortic cusps appear mildly calcified. Tricuspid Valve: Normal appearance of the tricuspid valve. Estimated peak PA systolic pressure 23 mmHg. There is trace tricuspid regurgitation. Pulmonic Valve: Pulmonic valve not well visualized. Pericardium: Normal pericardium with no significant pericardial effusion. Aorta: Normal aortic root. IVC: Normal size and normal respiratory collapse consistent with normal right atrial pressure. Conclusions Technically very difficult study with very poor endocardial visualization. Mild enlargement of left ventricle cavity. Mild left ventricular systolic dysfunction. Ejection fraction is visually estimated at 40-45 % in very limited views. Tissue Doppler/Mitral Doppler indices are consistent with impaired relaxation (Stage I diastolic dysfunction). Possible hypokinesis of the septum and inferior jenkins though very poorly seen. Mild mitral valve regurgitation. Estimated peak PA systolic pressure 23 mmHg based on RA pressure of 3 mmHg. Electronically Signed By: Nahun Orozco 29-Nov-2016 18:36:49 -0700 Patient Name: TAMAR TATE Study Date: 29-Nov-2016 [id number]
[2016-11-29] MEDS: ATORVASTATIN 80 MG TAB PO SCH (20:48)
[2016-11-29] MEDS: FAMOTIDINE 20 MG TAB PO SCH (20:48)
[2016-11-30] VITALS (12 sets, daily range): BP systolic 109–118; BP diastolic 62–73; PULSE 67–71; RESP 20–22
[2016-11-30] MEDS: FERROUS GLUCONATE (EC) 325 MG TAB PO SCH ×3 (00:04→21:31)
[2016-11-30] MEDS: ACCU-CHEK XX SCH (00:04)
[2016-11-30] MEDS: INSULIN ASPART [NOVOLOG] 3 ML PEN SC SCH ×4 (07:55→21:00)
--- NOTE | 2016-11-30 07:58 | CONS ---
Date/Time of Note Date/Time of Note DATE: 11/30/16 TIME: 07:57 Assessment/Plan Assessment/Plan Chief Complaint/Hosp Course NSTEMI: Now that there are three total trop values, this was likely a lab error or was someone else's labwork. Physiologically it is not possible to have a trop of 1.0 and have two subsequent completely normal values especially in the setting of renal disease. This is further supported by the lack of symptoms and the fact that the pt is here for a completely different reason. As such no further cardiac workup necessary at this time. . Subacute cerebellar CVA: Possibly cardiogenic but also a vasculopath. CAD s/p prior PCI CHF: EF ~40-45% but very poor images. Currently euvolemic Left nephrectomy for RCC CKD: Last Cr 03/14 was 2.6, now 2.0 Uncontrolled DM Med non-compliance -ASA -lipitor -coreg -bumex to keep even -ok for d/c from my perspective Problems: Consultation Date/Type/Reason Admit Date/Time Nov 28, 2016 at 12:57 Initial Consult Date 11/28/16 Type of Consultation: Cardiology Referring Provider: VICENTA CARNES NP 24 HR Interval Summary Free Text/Dictation No o/n events. No chest pain. More steady when walking Exam/Review of Systems Vital Signs Vitals Vital Signs Date Time Temp Pulse Resp B/P Pulse Ox O2 Delivery O2 Flow Rate FiO2 11/30/16 07:46 97.7 69 20 109/70 96 11/29/16 16:28 Room Air Intake and Output 11/29/16 11/29/16 11/30/16 15:00 23:00 07:00 Intake Total 240 ml Output Total 400 ml 450 ml Balance -400 ml -210 ml Exam Constitutional: alert, oriented Psych: nl mood/affect, no complaints Head: atraumatic, normocephalic Neck: No jvd Respiratory: clear to auscultation, No crackles/rales Cardiovascular: regular rate and rhythm, No edema Gastrointestinal: non-tender, soft Neurological: nl mental status, nl speech Results Result Diagram: 11/29/16 0637 11/29/16 0637 Results 24 hrs Laboratory Tests Test 11/29/16 08:14 11/29/16 11:53 11/29/16 17:10 11/29/16 20:58 Bedside Glucose 129 166 157 93 Medications Medications Current Medications Aspirin (Aspirin) 81 mg DAILY PO Last administered on 11/29/16 10:45; Admin Dose 81 MG; Start 11/29/16 at 09:00 Bumetanide (Bumex) 1 mg DAILY PO Last administered on 11/29/16 10:45; Admin Dose 1 MG; Start 11/29/16 at 09:00 Carvedilol (Coreg) 12.5 mg BID PO Last administered on 11/29/16 20:48; Admin Dose 12.5 MG; Start 11/28/16 at 21:00 Cholecalciferol (Vitamin D) 1,000 unit DAILY PO Last administered on 11/29/16 10:45; Admin Dose 1,000 UNIT; Start 11/29/16 at 09:00 Docusate Sodium (Colace) 250 mg BID PO Last administered on 11/29/16 20:48; Admin Dose 250 MG; Start 11/28/16 at 21:00 Finasteride (Proscar) 5 mg DAILY PO Last administered on 11/29/16 10:45; Admin Dose 5 MG; Start 11/29/16 at 09:00 Loratadine (Claritin) 10 mg DAILY PO Last administered on 11/29/16 10:45; Admin Dose 10 MG; Start 11/29/16 at 09:00 Multivitamins Therapeutic (Theragran) 1 tab DAILY PO Last administered on 10:45; Admin Dose 1 TAB; Start 11/29/16 at 09:00 Nicotine (Nicoderm 21 Mg/ 24hr) 1 patch DAILY TRANSDERM Last administered on 10:45; Admin Dose 1 PATCH; Start 11/29/16 at 09:00 Ferrous Gluconate (Fergon) 325 mg BID PO Last administered on 11/30/16 00:04; Admin Dose 325 MG; Start 11/28/16 at 21:00 Ondansetron HCl (Zofran Inj) 4 mg Q6H PRN IV NAUSEA AND/OR VOMITING; Start 11/28/16 at 14:00 Acetaminophen (Tylenol Tab) 650 mg Q6H PRN PO PAIN LEVEL 1-3 OR FEVER; Start 11/28/16 at 14:00 Acetaminophen (Tylenol Supp) 650 mg Q6H PRN [place] PAIN LEVEL 1-3 OR FEVER; Start 11/28/16 at 14:00 Morphine Sulfate (morphine) 2 mg Q4H PRN IV SEVERE PAIN LEVEL 7-10; Start 11/28 at 14:00 Famotidine (Pepcid) 20 mg Q24H PO Last administered on 11/29/16 20:48; Admin Dose 20 MG; Start 11/28/16 at 21:00 Heparin Sodium (Porcine) (Heparin (5000 Units/0.5 ml)) 5,000 unit Q12 SC Last administered on 11/29/16 20:51; Admin Dose 5,000 UNIT; Start 11/28/16 at 21:00 Diagnostic Test (Pha) (Accu-Chek) 1 ea 02 XX ; Start 11/29/16 at 02:00 Insulin Glargine (Lantus) 20 unit DAILY@08 SC ; Start 11/29/16 at 08:00 Atorvastatin Calcium (Lipitor) 80 mg HS PO Last administered on 11/29/16 20:48 ; Admin Dose 80 MG; Start 11/28/16 at 21:00 Miscellaneous Information 1 ea NOTE XX ; Start 11/28/16 at 15:00 Glucose (Glutose) 15 gm Q15M PRN PO DECREASED GLUCOSE; Start 11/28/16 at 15:00 Glucose (Glutose) 22.5 gm Q15M PRN PO DECREASED GLUCOSE; Start 11/28/16 at 15: 00 Dextrose (D50w Syringe) 25 ml Q15M PRN IV DECREASED GLUCOSE; Start 11/28/16 at 15:00 Dextrose (D50w Syringe) 50 ml Q15M PRN IV DECREASED GLUCOSE; Start 11/28/16 at 15:00 Glucagon (Glucagen) 1 mg Q15M PRN IM DECREASED GLUCOSE; Start 11/28/16 at 15:00 Glucose 15 gm 15 gm Q15M PRN BUCCAL DECREASED GLUCOSE; Start 11/28/16 at 15:00 Ceftriaxone Sodium (Rocephin) 50 ml @ 100 mls/hr Q24H IVPB Last administered on 11/29/16 13:28; Admin Dose 100 MLS/HR; Start 11/29/16 at 13:00 YELENA VÁZQUEZ Nov 30, 2016 07:58
[2016-11-30] MEDS: INSULIN GLARGINE [LANtus] 3 ML PEN SC SCH (08:00)
[2016-11-30] MEDS: LEVOTHYROXINE 25 MCG TAB PO SCH (08:20)
--- NOTE | 2016-11-30 08:45 | PN ---
Date/Time of Note Date/Time of Note DATE: 11/30/16 TIME: 08:36 Assessment/Plan VTE Prophylaxis VTE Prophylaxis Intervention: heparin Lines/Catheters IV [facility]from [facility] Assessment/Plan Chief Complaint/Hosp Course 66-year-old obese -[place] male, presented to the emergency room for evaluation of sudden onset of dizziness with off-balance 3 day duration. NEURO: (1)Acute nonhemorrhagic CVA, out of TPA window. 11/29/2016. MR angiogram brain WO contrast: Mild stenoses of the bilateral middle cerebral artery trifurcation branches and proximal A2 segment of the right anterior cerebral artery. No focal occlusion identified. I: MRI Brain: Patchy acute non-hemorrhagic infarct of the superior aspect left cerebellum with minimal mass effect on the fourth ventricle.No acute hemorrhage. 11/29/2016. MRA Neck: No evidence for carotid bifurcation stenosis. Patent vertebral arteries PLAN: -Continue with aspirin (no need for plavix per neuro), diabetic management, lipid lowering, blood pressure management -Rehabilitation with, PT/OT/ST evaluation and treatment. -Smoking cessation advised. CARDS: (1) Elevated troponin in the absence of chest pain:False negative test??- consecutive trops are normal which makes it low suspicion for poor renal clearance.Another possibility is transient elevation of trop in acute phase of stroke. -Cardiology evaluation appreciated and no further cardiac-work up needed. -Continue with aspirin prophylaxis. (2)Essential hypertension. -Continue home medications. (3)Hypercholesterolemia. -Continue statin. (4)Ischemic cardiomyopathy. TTE with preserved EF. -Continue home medications. RENAL: (1)Chronic kidney disease. Creatinine appears baseline. -Nephrology input greatly appreciated. Monitor renal function closely and renally dose medications. (2)Hx of RCC-Status post left nephrectomy. ENDO (1)DM II-poorly controlled. A1c 12.5. -Continue with Accu-Cheks/ISS/Lantus based on weight. Add Tradjenta to decrease insulin tolerance.Will initiate Metformin up on DC -Diabetic education for home regimen recommendation on DC , carb controlled diet. (2)Hypothyroidism. -Continue Synthroid. INFECTIOUS: (1)Possible urinary tract infection. UA suggestive. -F/u cultures. Empiric antibiotics. HEME: (1)Iron deficiency anemia. -Continue oral iron replacement. HSQ Prophylaxis DISP:CHENTE mobley appreciated.Final disposition home once medically cleared and if no further inpatient rehab indicated. Patient was seen in collaboration with . Problems: Subjective 24 Hr Interval Summary Free Text/Dictation No acute overnight episodes. Pending PT eval. Exam/Review of Systems Vital Signs Vitals Vital Signs Date Time Temp Pulse Resp B/P Pulse Ox O2 Delivery O2 Flow Rate FiO2 11/30/16 08:06 67 11/30/16 07:46 97.7 20 109/70 96 11/29/16 16:28 Room Air Intake and Output 11/29/16 11/29/16 11/30/16 15:00 23:00 07:00 Intake Total 240 ml Output Total 400 ml 450 ml Balance -400 ml -210 ml Exam General:Obese -[place] male, not in any acute distress . HEENT: Normocephalic, Atraumatic, No laceration or hematoma; Eyes: PEERL, Conjunctiva clear, Anicteric sclera Neck: Supple without any lymphadenopathy, nontender, no JVD, no carotid bruits, trachea midline, no thyromegaly Cardiac: S1, S2 auscultated, regular rhythm and rate, no mumurs or gallop Pulmonary: Normal respiratory effort. Chest clear to auscultation bilaterally, no adventitious breath sounds GI: Abdomen normal to inspection. Soft, non tender, non- distended, no masses, no rebound tenderness or guarding. Bowel sounds active on all four quadrants Genitourinary: Deferred Extremities: No cyanosis, clubbing, or edema. Pulses [2+] bilaterally. Full ROM on all four extremities. No focal weakness appreciated. Neurologic: Alert to person, place, time, and situation. Affect appropriate, intact sensation. Skin: Chronic vascular changes/hyperpigmentation on bilateral lower extremities. Results Result Diagram: 11/29/16 0637 11/29/16 0637 Results 24 hrs Laboratory Tests Test 11/29/16 11:53 11/29/16 17:10 11/29/16 20:58 11/30/16 08:17 Bedside Glucose 166 157 93 206 Medications Medications Current Medications Aspirin (Aspirin) 81 mg DAILY PO Last administered on 11/29/16t 10:45; Admin Dose 81 MG; Start 11/29/16 at 09:00 Bumetanide (Bumex) 1 mg DAILY PO Last administered on 11/29/16 10:45; Admin Dose 1 MG; Start 11/29/16 at 09:00 Carvedilol (Coreg) 12.5 mg BID PO Last administered on 11/29/16 20:48; Admin Dose 12.5 MG; Start 11/28/16 at 21:00 Cholecalciferol (Vitamin D) 1,000 unit DAILY PO Last administered on 11/29/16 10:45; Admin Dose 1,000 UNIT; Start 11/29/16 at 09:00 Docusate Sodium (Colace) 250 mg BID PO Last administered on 11/29/16 20:48; Admin Dose 250 MG; Start 11/28/16 at 21:00 Finasteride (Proscar) 5 mg DAILY PO Last administered on 11/29/16 10:45; Admin Dose 5 MG; Start 11/29/16 at 09:00 Loratadine (Claritin) 10 mg DAILY PO Last administered on 11/29/16 10:45; Admin Dose 10 MG; Start 11/29/16 at 09:00 Multivitamins Therapeutic (Theragran) 1 tab DAILY PO Last administered on 10:45; Admin Dose 1 TAB; Start 11/29/16 at 09:00 Nicotine (Nicoderm 21 Mg/ 24hr) 1 patch DAILY TRANSDERM Last administered on 10:45; Admin Dose 1 PATCH; Start 11/29/16 at 09:00 Ferrous Gluconate (Fergon) 325 mg BID PO Last administered on 11/30/16 00:04; Admin Dose 325 MG; Start 11/28/16 at 21:00 Ondansetron HCl (Zofran Inj) 4 mg Q6H PRN IV NAUSEA AND/OR VOMITING; Start 11/28/16 at 14:00 Acetaminophen (Tylenol Tab) 650 mg Q6H PRN PO PAIN LEVEL 1-3 OR FEVER; Start 11/28/16 at 14:00 Acetaminophen (Tylenol Supp) 650 mg Q6H PRN [place] PAIN LEVEL 1-3 OR FEVER; Start 11/28/16 at 14:00 Morphine Sulfate (morphine) 2 mg Q4H PRN IV SEVERE PAIN LEVEL 7-10; Start 11/28 at 14:00 Famotidine (Pepcid) 20 mg Q24H PO Last administered on 11/29/16 20:48; Admin Dose 20 MG; Start 11/28/16 at 21:00 Heparin Sodium (Porcine) (Heparin (5000 Units/0.5 ml)) 5,000 unit Q12 SC Last administered on 11/29/16 20:51; Admin Dose 5,000 UNIT; Start 11/28/16 at 21:00 Diagnostic Test (Pha) (Accu-Chek) 1 ea 02 XX ; Start 11/29/16 at 02:00 Insulin Glargine (Lantus) 20 unit DAILY@08 SC ; Start 11/29/16 at 08:00 Atorvastatin Calcium (Lipitor) 80 mg HS PO Last administered on 11/29/16 20:48 ; Admin Dose 80 MG; Start 11/28/16 at 21:00 Miscellaneous Information 1 ea NOTE XX ; Start 11/28/16 at 15:00 Glucose (Glutose) 15 gm Q15M PRN PO DECREASED GLUCOSE; Start 11/28/16 at 15:00 Glucose (Glutose) 22.5 gm Q15M PRN PO DECREASED GLUCOSE; Start 11/28/16 at 15: 00 Dextrose (D50w Syringe) 25 ml Q15M PRN IV DECREASED GLUCOSE; Start 11/28/16 at 15:00 Dextrose (D50w Syringe) 50 ml Q15M PRN IV DECREASED GLUCOSE; Start 11/28/16 at 15:00 Glucagon (Glucagen) 1 mg Q15M PRN IM DECREASED GLUCOSE; Start 11/28/16 at 15:00 Glucose 15 gm 15 gm Q15M PRN BUCCAL DECREASED GLUCOSE; Start 11/28/16 at 15:00 Ceftriaxone Sodium (Rocephin) 50 ml @ 100 mls/hr Q24H IVPB Last administered on 11/29/16 13:28; Admin Dose 100 MLS/HR; Start 11/29/16 at 13:00 VICENTA CARNES NP Nov 30, 2016 08:45
[2016-11-30] MEDS: BUMETANIDE 1 MG TAB PO SCH (09:00)
[2016-11-30 09:02] LABS: BASOPHILS % 0.3 % (0.0-2.0); EOSINOPHILS # 0.3 10^3/ul (0.0-0.5); EOSINOPHILS % 4.4 % (0.0-7.0); HEMATOCRIT 36.8 % (42.0-52.0); HEMOGLOBIN 11.4 g/dl (14.0-18.0); LYMPHOCYTES # 1.3 10^3/ul (0.8-2.9); LYMPHOCYTES % 17.5 % (15.0-51.0); MEAN CORPUSCULAR HEMOGLOBIN 27.3 pg (29.0-33.0); MEAN PLATELET VOLUME 10.7 fl (7.4-10.4); MONOCYTE # 0.9 10^3/ul (0.3-0.9); MONOCYTES % 12.4 % (0.0-11.0); NEUTROPHIL # 4.8 10^3/ul (1.6-7.5); NEUTROPHILS % 64.9 % (39.0-77.0); PLATELET COUNT 353 10^3/UL (140-415); RED BLOOD COUNT 4.18 10^6/ul (4.70-6.10); RED CELL DISTRIBUTION WIDTH 18.6 % (11.5-14.5); WHITE BLOOD COUNT 7.3 10^3/ul (4.8-10.8)
--- NOTE | 2016-11-30 09:22 | RADRPT ---
Vent Rate: 68 bpm RR Interval: 0 msec AL Interval: 152 msec QRS Duration: 104 msec QT Interval: 442 msec QTC Interval: 469 msec P-R-T Conde: 52 - 50 - 49 degrees Normal sinus rhythm Nonspecific T wave abnormality Tall R in V2 Prolonged QT Abnormal ECG Electronically Signed By: Jas Torres [id number]
[2016-11-30 09:32] LABS: CREATININE 1.95 mg/dl (0.61-1.24); POTASSIUM 3.7 mmol/L (3.5-5.1)
[2016-11-30] MEDS: ASPIRIN 81 MG TAB PO SCH (10:30)
[2016-11-30] MEDS: NICOTINE (21 MG/24 HR) PATCH TRANSDERM SCH (10:30)
[2016-11-30] MEDS: FINASTERIDE 5 MG TAB PO SCH (10:30)
[2016-11-30] MEDS: DOCUSATE SODIUM 250 MG CAP PO SCH ×2 (10:30→21:31)
[2016-11-30] MEDS: MULTIVITAMINS THERAPEUTIC TAB PO SCH (10:30)
[2016-11-30] MEDS: CHOLECALCIFEROL 1,000 UNIT TAB PO SCH (10:31)
[2016-11-30] MEDS: LORATADINE 10 MG TAB PO SCH (10:31)
[2016-11-30] MEDS: LINAGLIPTIN 5 MG TABLET PO SCH (10:31)
[2016-11-30] MEDS: HEPARIN 5,000 UNIT/0.5 ML VIAL SC SCH ×2 (10:40→21:39)
--- NOTE | 2016-11-30 10:44 | CONS ---
Date/Time of Note Date/Time of Note DATE: 11/30/16 TIME: 10:41 Consult Date/Type/Reason Admit Date/Time Nov 28, 2016 at 12:57 Initial Consult Date 11/28/16 Type of Consultation: Neurology Reason for Consultation CVA Ordering Provider: VICENTA CARNES NP Subjective remains stable no new neurologic changes Objective Vital Signs Date Time Temp Pulse Resp B/P Pulse Ox O2 Delivery O2 Flow Rate FiO2 11/30/16 08:06 67 11/30/16 07:46 97.7 20 109/70 96 11/29/16 16:28 Room Air Intake and Output 11/29/16 11/29/16 11/30/16 15:00 23:00 07:00 Intake Total 240 ml Output Total 400 ml 450 ml Balance -400 ml -210 ml Exam awake and alert oriented x3 obese, NAD follows all commands no aphasia CN:II-XII intact Motor: left arm slight pronator drift left FTN dysmetria present otherwise strength preserved Reflexes 1+ Results/Medications Result Diagram: 11/30/16 0757 11/30/16 0757 Results 24 hrs Laboratory Tests Test 11/29/16 11:53 11/29/16 17:10 11/29/16 20:58 11/30/16 07:57 Bedside Glucose 166 157 93 White Blood Count 7.3 Red Blood Count 4.18 L Hemoglobin 11.4 L Hematocrit 36.8 L Mean Corpuscular Volume 88.0 Mean Corpuscular Hemoglobin 27.3 L Mean Corpuscular Hemoglobin Concent 31.0 L Red Cell Distribution Width 18.6 H Platelet Count 353 Mean Platelet Volume 10.7 H Neutrophils % 64.9 Lymphocytes % 17.5 Monocytes % 12.4 H Eosinophils % 4.4 Basophils % 0.3 Nucleated Red Blood Cells % 0.0 Neutrophils # 4.8 Lymphocytes # 1.3 Monocytes # 0.9 Eosinophils # 0.3 Basophils # 0.0 Nucleated Red Blood Cells # 0.0 Sodium Level 139 Potassium Level 3.7 Chloride Level 105 Carbon Dioxide Level 25 Anion Gap 13 Blood Urea Nitrogen 24 H Creatinine 1.95 H Glucose Level 197 Hemoglobin A1c 6.0 H Calcium Level 9.0 Phosphorus Level 4.0 Magnesium Level 2.0 Test 11/30/16 08:17 11/30/16 10:28 Bedside Glucose 206 98 Medications Current Medications Aspirin (Aspirin) 81 mg DAILY PO Last administered on 11/30/16 10:30; Admin Dose 81 MG; Start 11/29/16 at 09:00 Bumetanide (Bumex) 1 mg DAILY PO Last administered on 11/29/16 10:45; Admin Dose 1 MG; Start 11/29/16 at 09:00 Carvedilol (Coreg) 12.5 mg BID PO Last administered on 11/30/16 10:31; Admin Dose 12.5 MG; Start 11/28/16 at 21:00 Cholecalciferol (Vitamin D) 1,000 unit DAILY PO Last administered on 11/30/16 10:31; Admin Dose 1,000 UNIT; Start 11/29/16 at 09:00 Docusate Sodium (Colace) 250 mg BID PO Last administered on 11/30/16 10:30; Admin Dose 250 MG; Start 11/28/16 at 21:00 Finasteride (Proscar) 5 mg DAILY PO Last administered on 11/30/16 10:30; Admin Dose 5 MG; Start 11/29/16 at 09:00 Loratadine (Claritin) 10 mg DAILY PO Last administered on 11/30/16 10:31; Admin Dose 10 MG; Start 11/29/16 at 09:00 Multivitamins Therapeutic (Theragran) 1 tab DAILY PO Last administered on 10:30; Admin Dose 1 TAB; Start 11/29/16 at 09:00 Nicotine (Nicoderm 21 Mg/ 24hr) 1 patch DAILY TRANSDERM Last administered on 10:30; Admin Dose 1 PATCH; Start 11/29/16 at 09:00 Ferrous Gluconate (Fergon) 325 mg BID PO Last administered on 11/30/16 10:31; Admin Dose 325 MG; Start 11/28/16 at 21:00 Ondansetron HCl (Zofran Inj) 4 mg Q6H PRN IV NAUSEA AND/OR VOMITING; Start 11/28/16 at 14:00 Acetaminophen (Tylenol Tab) 650 mg Q6H PRN PO PAIN LEVEL 1-3 OR FEVER; Start 11/28/16 at 14:00 Acetaminophen (Tylenol Supp) 650 mg Q6H PRN [place] PAIN LEVEL 1-3 OR FEVER; Start 11/28/16 at 14:00 Morphine Sulfate (morphine) 2 mg Q4H PRN IV SEVERE PAIN LEVEL 7-10; Start 11/28 at 14:00 Famotidine (Pepcid) 20 mg Q24H PO Last administered on 11/29/16 20:48; Admin Dose 20 MG; Start 11/28/16 at 21:00 Heparin Sodium (Porcine) (Heparin (5000 Units/0.5 ml)) 5,000 unit Q12 SC Last administered on 11/30/16 10:40; Admin Dose 5,000 UNIT; Start 11/28/16 at 21:00 Diagnostic Test (Pha) (Accu-Chek) 1 ea 02 XX ; Start 11/29/16 at 02:00 Insulin Glargine (Lantus) 20 unit DAILY@08 SC ; Start 11/29/16 at 08:00 Atorvastatin Calcium (Lipitor) 80 mg HS PO Last administered on 11/29/16 20:48 ; Admin Dose 80 MG; Start 11/28/16 at 21:00 Miscellaneous Information 1 ea NOTE XX ; Start 11/28/16 at 15:00 Glucose (Glutose) 15 gm Q15M PRN PO DECREASED GLUCOSE; Start 11/28/16 at 15:00 Glucose (Glutose) 22.5 gm Q15M PRN PO DECREASED GLUCOSE; Start 11/28/16 at 15: 00 Dextrose (D50w Syringe) 25 ml Q15M PRN IV DECREASED GLUCOSE; Start 11/28/16 at 15:00 Dextrose (D50w Syringe) 50 ml Q15M PRN IV DECREASED GLUCOSE; Start 11/28/16 at 15:00 Glucagon (Glucagen) 1 mg Q15M PRN IM DECREASED GLUCOSE; Start 11/28/16 at 15:00 Glucose 15 gm 15 gm Q15M PRN BUCCAL DECREASED GLUCOSE; Start 11/28/16 at 15:00 Ceftriaxone Sodium (Rocephin) 50 ml @ 100 mls/hr Q24H IVPB Last administered on 11/29/16 13:28; Admin Dose 100 MLS/HR; Start 11/29/16 at 13:00 Linagliptin (Tradjenta) 5 mg DAILY PO Last administered on 11/30/16 10:31; Admin Dose 5 MG; Start 11/30/16 at 09:00 Assessment/Plan Chief Complaint/Hosp Course Cerebellar CVA clinically improved, MRI confirms left cerebellar superior region minimal mass effect small vessel disease Recommend: continue aspirin 81 mg, smoking cessation advised ECHO 40-45% poor quality, recommend outpatient follow up to reevaluate may benefit from outpatient monitoring also for afib, SCA strokes are often from cardioembolic etiology continue high dose statin on Lipitor 80 mg qhs maintain euglycemia, afebrile DVT ppx PT/OT/Speech fu outpatient follow up neurology, cardiology Problems: ЕЛЕНА HOOVER MD Nov 30, 2016 10:44
--- NOTE | 2016-11-30 13:38 | PN ---
DATE: 11/30/2016 SUBJECTIVE: The patient is feeling better. No chest pain, shortness of breath, no blurry vision. OBJECTIVE: VITAL SIGNS: Blood pressure is 109/70, pulse 67, respiration 20, temperature 97.7. HEENT: Head is normocephalic. NECK: Supple. HEART: Regular rate. LUNGS: Show diminished breath sounds at base. ABDOMEN: Soft, nontender to palpation. No rebound or guarding. EXTREMITIES: Negative for clubbing, cyanosis, edema. DERMATOLOGIC: No rashes. MUSCULOSKELETAL: No joint effusions. NEUROLOGIC: No change in exam. MEDICATIONS: The patient's medications have been reviewed. LABORATORY DATA: Pending. ASSESSMENT AND PLAN: 1. Nonoliguric acute kidney injury on top of chronic kidney disease with a history of nephrectomy. The patient's renal function is currently at baseline. We will continue current treatment plan, orozco pportive care, renally dose all meds. 2. Chronic kidney disease. The patient's renal function appears to be stable at baseline. Continu e to monitor. 3. Anemia. Monitor hemoglobin and hematocrit levels. 4. Mineral bone disorder. Monitor Sinemet and phosphorus levels. 5. The patient appears euvolemic. Continue medical management. 6. History of left nephrectomy for renal cell carcinoma. Continue to monitor. 7. Diabetes, continue Accu-Cheks and sliding scale. 8. Cerebrovascular accident. Continue medical management. 9. Elevated troponin spuriously elevated. Continue to monitor. Dictated By: LUC LIMA/MP Conf#: [id number] DID#: [id number]
[2016-11-30] MEDS: CEFTRIAXONE 1 GM/50 ML (PMX) 50 ML IVPB SCH (13:59)
[2016-11-30] MEDS: FAMOTIDINE 20 MG TAB PO SCH (21:32)
[2016-11-30] MEDS: ATORVASTATIN 80 MG TAB PO SCH (21:32)
[2016-12-01] VITALS (10 sets, daily range): BP systolic 97–122; BP diastolic 53–72; PULSE 69–73; RESP 18–20
[2016-12-01] MEDS: ACCU-CHEK XX SCH (02:00)
[2016-12-01] MEDS: ACETAMINOPHEN 325 MG TAB PO PRN (05:38)
[2016-12-01] MEDS: INSULIN ASPART [NOVOLOG] 3 ML PEN SC SCH ×4 (07:55→21:00)
[2016-12-01] MEDS: INSULIN GLARGINE [LANtus] 3 ML PEN SC SCH (08:00)
[2016-12-01] MEDS: LINAGLIPTIN 5 MG TABLET PO SCH (08:39)
[2016-12-01] MEDS: FERROUS GLUCONATE (EC) 325 MG TAB PO SCH ×2 (08:39→20:47)
[2016-12-01] MEDS: MULTIVITAMINS THERAPEUTIC TAB PO SCH (08:39)
[2016-12-01] MEDS: LEVOTHYROXINE 25 MCG TAB PO SCH (08:39)
[2016-12-01] MEDS: ASPIRIN 81 MG TAB PO SCH (08:39)
[2016-12-01] MEDS: NICOTINE (21 MG/24 HR) PATCH TRANSDERM SCH (08:39)
[2016-12-01] MEDS: FINASTERIDE 5 MG TAB PO SCH (08:39)
[2016-12-01] MEDS: DOCUSATE SODIUM 250 MG CAP PO SCH ×2 (08:40→20:47)
[2016-12-01] MEDS: LORATADINE 10 MG TAB PO SCH (08:40)
[2016-12-01] MEDS: CHOLECALCIFEROL 1,000 UNIT TAB PO SCH (08:40)
[2016-12-01] MEDS: BUMETANIDE 1 MG TAB PO SCH (08:40)
[2016-12-01] MEDS: HEPARIN 5,000 UNIT/0.5 ML VIAL SC SCH ×2 (08:43→20:53)
--- NOTE | 2016-12-01 12:06 | PN ---
Date/Time of Note Date/Time of Note DATE: 12/01/16 TIME: 12:00 Assessment/Plan VTE Prophylaxis VTE Prophylaxis Intervention: SCD's Lines/Catheters IV Catheter Type (from Nrs): Saline Lock Urinary Cath still in place: No Assessment/Plan Assessment/Plan (1)Acute nonhemorrhagic CVA, out of TPA window. 11/29/2016. MR angiogram brain WO contrast: Mild stenoses of the bilateral middle cerebral artery trifurcation branches and proximal A2 segment of the right anterior cerebral artery. No focal occlusion identified. I: MRI Brain: Patchy acute non-hemorrhagic infarct of the superior aspect left cerebellum with minimal mass effect on the fourth ventricle.No acute hemorrhage. 11/29/2016. MRA Neck: No evidence for carotid bifurcation stenosis. Patent vertebral arteries PLAN: -Continue with aspirin (no need for plavix per neuro), diabetic management, lipid lowering, blood pressure management -Rehabilitation with, PT/OT/ST evaluation and treatment. -Smoking cessation advised. CARDS: (1) Elevated troponin in the absence of chest pain:False negative test??- consecutive trops are normal which makes it low suspicion for poor renal clearance.Another possibility is transient elevation of trop in acute phase of stroke. -Cardiology evaluation appreciated and no further cardiac-work up needed. -Continue with aspirin prophylaxis. (2)Essential hypertension. -Continue home medications. (3)Hypercholesterolemia. -Continue statin. (4)Ischemic cardiomyopathy. TTE with preserved EF. -Continue home medications. RENAL: (1)Chronic kidney disease. Creatinine appears baseline. -Nephrology input greatly appreciated. Monitor renal function closely and renally dose medications. (2)Hx of RCC-Status post left nephrectomy. only has right kidney ENDO (1)DM II-poorly controlled. A1c 12.5. -Continue with Accu-Cheks/ISS/Lantus based on weight. Add Tradjenta to decrease insulin tolerance.Will initiate Metformin up on DC -Diabetic education for home regimen recommendation on DC , carb controlled diet. (2)Hypothyroidism. -Continue Synthroid. UTI on IV abx Ceftriaxone , Urine Cx growign enterococcus, will change abx to levaquind based on sensitivity HSQ Prophylaxis DISP:CHENTE mobley appreciated.Final disposition home once medically cleared and if no further inpatient rehab indicated. Patient was seen in collaboration with . Subjective 24 Hr Interval Summary Free Text/Dictation pt stable, left Arm pronator drift, BP stable,afebrile Exam/Review of Systems Vital Signs Vitals Vital Signs Date Time Temp Pulse Resp B/P Pulse Ox O2 Delivery O2 Flow Rate FiO2 12/01/16 11:27 98.3 64 20 113/67 96 11/29/16 16:28 Room Air Intake and Output 11/30/16 11/30/16 12/01/16 15:00 23:00 07:00 Intake Total 1060 ml Output Total 1000 ml Balance 60 ml Exam Constitutional: alert Psych: no complaints Head: normocephalic ENMT: nl external ears & nose Neck: non-tender, supple Respiratory: clear to auscultation, normal air movement Cardiovascular: nl pulses, regular rate and rhythm Gastrointestinal: nl liver, spleen, non-tender, soft Musculoskeletal: nl extremities to inspection, nl gait and stance Results Result Diagram: 11/30/16 0757 11/30/16 0757 Results 24 hrs Laboratory Tests Test 11/30/16 12:58 11/30/16 17:41 11/30/16 21:44 12/01/16 08:37 Bedside Glucose 111 103 122 123 Test 12/01/16 11:48 Bedside Glucose 132 Medications Medications Current Medications Aspirin (Aspirin) 81 mg DAILY PO Last administered on 12/01/16 08:39; Admin Dose 81 MG; Start 11/29/16 at 09:00 Bumetanide (Bumex) 1 mg DAILY PO Last administered on 12/01/16 08:40; Admin Dose 1 MG; Start 11/29/16 at 09:00 Carvedilol (Coreg) 12.5 mg BID PO Last administered on 12/01/16 08:39; Admin Dose 12.5 MG; Start 11/28/16 at 21:00 Cholecalciferol (Vitamin D) 1,000 unit DAILY PO Last administered on 12/01/16 08:40; Admin Dose 1,000 UNIT; Start 11/29/16 at 09:00 Docusate Sodium (Colace) 250 mg BID PO Last administered on 12/01/16 08:40; Admin Dose 250 MG; Start 11/28/16 at 21:00 Finasteride (Proscar) 5 mg DAILY PO Last administered on 12/01/16 08:39; Admin Dose 5 MG; Start 11/29/16 at 09:00 Loratadine (Claritin) 10 mg DAILY PO Last administered on 12/01/16 08:40; Admin Dose 10 MG; Start 11/29/16 at 09:00 Multivitamins Therapeutic (Theragran) 1 tab DAILY PO Last administered on 08:39; Admin Dose 1 TAB; Start 11/29/16 at 09:00 Nicotine (Nicoderm 21 Mg/ 24hr) 1 patch DAILY TRANSDERM Last administered on 08:39; Admin Dose 1 PATCH; Start 11/29/16 at 09:00 Ferrous Gluconate (Fergon) 325 mg BID PO Last administered on 12/01/16 08:39; Admin Dose 325 MG; Start 11/28/16 at 21:00 Ondansetron HCl (Zofran Inj) 4 mg Q6H PRN IV NAUSEA AND/OR VOMITING; Start 11/28/16 at 14:00 Acetaminophen (Tylenol Tab) 650 mg Q6H PRN PO PAIN LEVEL 1-3 OR FEVER Last administered on 12/01/16 05:38; Admin Dose 650 MG; Start 11/28/16 at 14:00 Acetaminophen (Tylenol Supp) 650 mg Q6H PRN [place] PAIN LEVEL 1-3 OR FEVER; Start 11/28/16 at 14:00 Morphine Sulfate (morphine) 2 mg Q4H PRN IV SEVERE PAIN LEVEL 7-10; Start 11/28 at 14:00 Famotidine (Pepcid) 20 mg Q24H PO Last administered on 11/30/16 21:32; Admin Dose 20 MG; Start 11/28/16 at 21:00 Heparin Sodium (Porcine) (Heparin (5000 Units/0.5 ml)) 5,000 unit Q12 SC Last administered on 12/01/16 08:43; Admin Dose 5,000 UNIT; Start 11/28/16 at 21:00 Diagnostic Test (Pha) (Accu-Chek) 1 ea 02 XX ; Start 11/29/16 at 02:00 Insulin Glargine (Lantus) 20 unit DAILY@08 SC ; Start 11/29/16 at 08:00 Atorvastatin Calcium (Lipitor) 80 mg HS PO Last administered on 11/30/16 21:32 ; Admin Dose 80 MG; Start 11/28/16 at 21:00 Miscellaneous Information 1 ea NOTE XX ; Start 11/28/16 at 15:00 Glucose (Glutose) 15 gm Q15M PRN PO DECREASED GLUCOSE; Start 11/28/16 at 15:00 Glucose (Glutose) 22.5 gm Q15M PRN PO DECREASED GLUCOSE; Start 11/28/16 at 15: 00 Dextrose (D50w Syringe) 25 ml Q15M PRN IV DECREASED GLUCOSE; Start 11/28/16 at 15:00 Dextrose (D50w Syringe) 50 ml Q15M PRN IV DECREASED GLUCOSE; Start 11/28/16 at 15:00 Glucagon (Glucagen) 1 mg Q15M PRN IM DECREASED GLUCOSE; Start 11/28/16 at 15:00 Glucose 15 gm 15 gm Q15M PRN BUCCAL DECREASED GLUCOSE; Start 11/28/16 at 15:00 Ceftriaxone Sodium (Rocephin) 50 ml @ 100 mls/hr Q24H IVPB Last administered on 11/30/16 13:59; Admin Dose 100 MLS/HR; Start 11/29/16 at 13:00 Linagliptin (Tradjenta) 5 mg DAILY PO Last administered on 12/01/16 08:39; Admin Dose 5 MG; Start 11/30/16 at 09:00 JAMA SOLANO MD Dec 01, 2016 12:05
[2016-12-01] MEDS ORDERED: LEVOFLOXACIN 500MG/D5W (PMX) 100 ML IVPB ONE (12:30)
--- NOTE | 2016-12-01 13:15 | CONS ---
Date/Time of Note Date/Time of Note DATE: 12/01/16 TIME: 13:14 Assessment/Plan Assessment/Plan Chief Complaint/Hosp Course NSTEMI: Now that there are three total trop values, this was likely a lab error or was someone else's labwork. Physiologically it is not possible to have a trop of 1.0 and have two subsequent completely normal values especially in the setting of renal disease. This is further supported by the lack of symptoms and the fact that the pt is here for a completely different reason. As such no further cardiac workup necessary at this time. . Subacute cerebellar CVA: Possibly cardiogenic but also a vasculopath. CAD s/p prior PCI CHF: EF ~40-45% but very poor images. Currently euvolemic Left nephrectomy for RCC CKD: Last Cr 03/14 was 2.6, now 2.0 DM: initial A1C >12, now 6, likely lab error just like trop Med non-compliance -ASA -lipitor -coreg -bumex to keep even -ok for d/c from my perspective -will follow PRN Problems: Consultation Date/Type/Reason Admit Date/Time Nov 28, 2016 at 12:57 Initial Consult Date 11/28/16 Type of Consultation: Neurology Referring Provider: VICENTA CARNES NP 24 HR Interval Summary Free Text/Dictation No o/n events. No chest pain,. Exam/Review of Systems Vital Signs Vitals Vital Signs Date Time Temp Pulse Resp B/P Pulse Ox O2 Delivery O2 Flow Rate FiO2 12/01/16 12:30 69 12/01/16 11:27 98.3 20 113/67 96 11/29/16 16:28 Room Air Intake and Output 11/30/16 11/30/16 12/01/16 15:00 23:00 07:00 Intake Total 1060 ml Output Total 1000 ml Balance 60 ml Exam Constitutional: alert, oriented Psych: no complaints Head: atraumatic, normocephalic Eyes: nl conjunctiva Neck: No jvd Respiratory: clear to auscultation, No crackles/rales Cardiovascular: regular rate and rhythm, No edema Gastrointestinal: non-tender, soft Neurological: nl mental status, nl speech Results Result Diagram: 11/30/16 0757 11/30/16 0757 Results 24 hrs Laboratory Tests Test 11/30/16 17:41 11/30/16 21:44 12/01/16 08:37 12/01/16 11:48 Bedside Glucose 103 122 123 132 Medications Medications Current Medications Aspirin (Aspirin) 81 mg DAILY PO Last administered on 12/01/16 08:39; Admin Dose 81 MG; Start 11/29/16 at 09:00 Bumetanide (Bumex) 1 mg DAILY PO Last administered on 12/01/16 08:40; Admin Dose 1 MG; Start 11/29/16 at 09:00 Carvedilol (Coreg) 12.5 mg BID PO Last administered on 12/01/16 08:39; Admin Dose 12.5 MG; Start 11/28/16 at 21:00 Cholecalciferol (Vitamin D) 1,000 unit DAILY PO Last administered on 12/01/16 08:40; Admin Dose 1,000 UNIT; Start 11/29/16 at 09:00 Docusate Sodium (Colace) 250 mg BID PO Last administered on 12/01/16 08:40; Admin Dose 250 MG; Start 11/28/16 at 21:00 Finasteride (Proscar) 5 mg DAILY PO Last administered on 12/01/16 08:39; Admin Dose 5 MG; Start 11/29/16 at 09:00 Loratadine (Claritin) 10 mg DAILY PO Last administered on 12/01/16 08:40; Admin Dose 10 MG; Start 11/29/16 at 09:00 Multivitamins Therapeutic (Theragran) 1 tab DAILY PO Last administered on 08:39; Admin Dose 1 TAB; Start 11/29/16 at 09:00 Nicotine (Nicoderm 21 Mg/ 24hr) 1 patch DAILY TRANSDERM Last administered on 08:39; Admin Dose 1 PATCH; Start 11/29/16 at 09:00 Ferrous Gluconate (Fergon) 325 mg BID PO Last administered on 12/01/16 08:39; Admin Dose 325 MG; Start 11/28/16 at 21:00 Ondansetron HCl (Zofran Inj) 4 mg Q6H PRN IV NAUSEA AND/OR VOMITING; Start 11/28/16 at 14:00 Acetaminophen (Tylenol Tab) 650 mg Q6H PRN PO PAIN LEVEL 1-3 OR FEVER Last administered on 12/01/16 05:38; Admin Dose 650 MG; Start 11/28/16 at 14:00 Acetaminophen (Tylenol Supp) 650 mg Q6H PRN [place] PAIN LEVEL 1-3 OR FEVER; Start 11/28/16 at 14:00 Morphine Sulfate (morphine) 2 mg Q4H PRN IV SEVERE PAIN LEVEL 7-10; Start 11/28 at 14:00 Famotidine (Pepcid) 20 mg Q24H PO Last administered on 11/30/16 21:32; Admin Dose 20 MG; Start 11/28/16 at 21:00 Heparin Sodium (Porcine) (Heparin (5000 Units/0.5 ml)) 5,000 unit Q12 SC Last administered on 12/01/16 08:43; Admin Dose 5,000 UNIT; Start 11/28/16 at 21:00 Diagnostic Test (Pha) (Accu-Chek) 1 ea 02 XX ; Start 11/29/16 at 02:00 Insulin Glargine (Lantus) 20 unit DAILY@08 SC ; Start 11/29/16 at 08:00 Atorvastatin Calcium (Lipitor) 80 mg HS PO Last administered on 11/30/16 21:32 ; Admin Dose 80 MG; Start 11/28/16 at 21:00 Miscellaneous Information 1 ea NOTE XX ; Start 11/28/16 at 15:00 Glucose (Glutose) 15 gm Q15M PRN PO DECREASED GLUCOSE; Start 11/28/16 at 15:00 Glucose (Glutose) 22.5 gm Q15M PRN PO DECREASED GLUCOSE; Start 11/28/16 at 15: 00 Dextrose (D50w Syringe) 25 ml Q15M PRN IV DECREASED GLUCOSE; Start 11/28/16 at 15:00 Dextrose (D50w Syringe) 50 ml Q15M PRN IV DECREASED GLUCOSE; Start 11/28/16 at 15:00 Glucagon (Glucagen) 1 mg Q15M PRN IM DECREASED GLUCOSE; Start 11/28/16 at 15:00 Glucose (Glutose) 15 gm Q15M PRN BUCCAL DECREASED GLUCOSE; Start 11/28/16 at 15 :00 Linagliptin 5 mg 5 mg DAILY PO Last administered on 12/01/16 08:39; Admin Dose 5 MG; Start 11/30/16 at 09:00 Levofloxacin/ Dextrose 100 ml @ 100 mls/hr ONCE ONCE IVPB ; Start 12/01/16 at 12:30; Stop 12/01/16 at 13:29 Levofloxacin/ Dextrose (Levaquin 250 Mg/ D5W 50 ml (Pmx)) 50 ml @ 50 mls/hr Q24H IVPB ; Start 12/02/16 at 13:00 YELENA VÁZQUEZ Dec 01, 2016 13:15
[2016-12-01] MEDS: ATORVASTATIN 80 MG TAB PO SCH (20:47)
[2016-12-01] MEDS: FAMOTIDINE 20 MG TAB PO SCH (20:48)
[2016-12-02 02:00] VITALS: BP 116/68; RESP 20
[2016-12-02] MEDS: ACCU-CHEK XX SCH (02:00)
[2016-12-02 05:50] LABS: BASOPHILS % 0.5 % (0.0-2.0); EOSINOPHILS # 0.4 10^3/ul (0.0-0.5); EOSINOPHILS % 4.8 % (0.0-7.0); HEMATOCRIT 35.7 % (42.0-52.0); HEMOGLOBIN 11.1 g/dl (14.0-18.0); LYMPHOCYTES # 1.5 10^3/ul (0.8-2.9); LYMPHOCYTES % 17.6 % (15.0-51.0); MEAN CORPUSCULAR HEMOGLOBIN 27.3 pg (29.0-33.0); MEAN CORPUSCULAR HGB CONC 31.1 g/dl (32.0-37.0); MEAN CORPUSCULAR VOLUME 87.9 fl (82.0-101.0); MEAN PLATELET VOLUME 10.3 fl (7.4-10.4); MONOCYTES % 12.5 % (0.0-11.0); NEUTROPHIL # 5.3 10^3/ul (1.6-7.5); PLATELET COUNT 328 10^3/UL (140-415); RED BLOOD COUNT 4.06 10^6/ul (4.70-6.10); RED CELL DISTRIBUTION WIDTH 18.5 % (11.5-14.5); WHITE BLOOD COUNT 8.3 10^3/ul (4.8-10.8)
[2016-12-02 06:08] LABS: INR 1.16; PROTIME 14.8 Sec (12.2-14.2); PT RATIO 1.2
[2016-12-02 06:16] LABS: CALCIUM 8.9 mg/dl (8.4-10.2); CREATININE 2.01 mg/dl (0.61-1.24); POTASSIUM 3.7 mmol/L (3.5-5.1)
[2016-12-02] MEDS: ACETAMINOPHEN 325 MG TAB PO PRN (06:54)
[2016-12-02] MEDS: LEVOTHYROXINE 25 MCG TAB PO SCH (06:54)
[2016-12-02 07:24] VITALS: BP 117/66; RESP 18
--- NOTE | 2016-12-02 08:00 | PN ---
DATE: 12/01/2016 SUBJECTIVE: The patient is stable. No events overnight. OBJECTIVE: VITAL SIGNS: Blood pressure 103/53, temperature 98.2, pulse 73, respirations 18. HEENT: Head is normocephalic. NECK: Supple. HEART: Regular rate. LUNGS: Show diminished breath sounds at base. ABDOMEN: Soft, nontender to palpation without rebound or guarding. EXTREMITIES: Negative for clubbing, cyanosis, edema. DERMATOLOGIC: No rashes. MUSCULOSKELETAL: No joint effusions. NEUROLOGIC: No change in exam. MEDICATIONS: Have been reviewed. LABORATORY DATA: Has been reviewed and pending. ASSESSMENT AND PLAN: 1. Nonoliguric acute kidney injury on top of chronic kidney disease with a history of nephrectomy. The patient's renal function is stable. Continue current treatment plan. 2. Chronic kidney disease. Renal function. The patient's renal function appears to be at baseline . Continue to monitor. 3. Anemia. Monitor hemoglobin and hematocrit levels. 4. Mineral bone disorder, monitor calcium and phosphorus levels. 5. History of left nephrectomy, renal cell carcinoma. Continue to monitor. 6. Diabetes, continue Accu-Cheks and sliding scale. 7. Cerebrovascular accident. Continue current medical management. Dictated By: LUC LIMA/MP Conf#: [id number] DID#: [id number]
[2016-12-02] MEDS: INSULIN ASPART [NOVOLOG] 3 ML PEN SC SCH ×4 (08:01→20:33)
[2016-12-02] MEDS: FERROUS GLUCONATE (EC) 325 MG TAB PO SCH ×2 (08:01→20:32)
[2016-12-02] MEDS: MULTIVITAMINS THERAPEUTIC TAB PO SCH (08:02)
[2016-12-02] MEDS: LORATADINE 10 MG TAB PO SCH (08:02)
[2016-12-02] MEDS: ASPIRIN 81 MG TAB PO SCH (08:02)
[2016-12-02] MEDS: FINASTERIDE 5 MG TAB PO SCH (08:02)
[2016-12-02] MEDS: DOCUSATE SODIUM 250 MG CAP PO SCH ×2 (08:03→20:31)
[2016-12-02] MEDS: CHOLECALCIFEROL 1,000 UNIT TAB PO SCH (08:03)
[2016-12-02] MEDS: BUMETANIDE 1 MG TAB PO SCH (08:03)
[2016-12-02] MEDS: LINAGLIPTIN 5 MG TABLET PO SCH (08:03)
[2016-12-02] MEDS: NICOTINE (21 MG/24 HR) PATCH TRANSDERM SCH (08:14)
[2016-12-02] MEDS: HEPARIN 5,000 UNIT/0.5 ML VIAL SC SCH ×2 (08:17→20:44)
[2016-12-02] MEDS: INSULIN GLARGINE [LANtus] 3 ML PEN SC SCH (08:17)
--- NOTE | 2016-12-02 10:09 | PN ---
Date/Time of Note Date/Time of Note DATE: 12/02/16 TIME: 10:09 Assessment/Plan VTE Prophylaxis VTE Prophylaxis Intervention: other Lines/Catheters [facility] Saline Lock Urinary Cath still in place: No Assessment/Plan Chief Complaint/Hosp Course SUBJECTIVE: The patient is stable. No events overnight. OBJECTIVE: HEENT: Head is normocephalic. NECK: Supple. HEART: Regular rate. LUNGS: Show diminished breath sounds at base. ABDOMEN: Soft, nontender to palpation without rebound or guarding. EXTREMITIES: Negative for clubbing, cyanosis, edema. DERMATOLOGIC: No rashes. MUSCULOSKELETAL: No joint effusions. NEUROLOGIC: No change in exam. MEDICATIONS: Have been reviewed. LABORATORY DATA: Has been reviewed and pending. ASSESSMENT AND PLAN: 1. Nonoliguric acute kidney injury on top of chronic kidney disease with a history of nephrectomy. The patient's renal function is stable. Continue current treatment plan. 2. Chronic kidney disease. Renal function. The patient's renal function appears to be at baseline. Continue to monitor. 3. Anemia. Monitor hemoglobin and hematocrit levels. 4. Mineral bone disorder, monitor calcium and phosphorus levels. 5. History of left nephrectomy, renal cell carcinoma. Continue to monitor. 6. Diabetes, continue Accu-Cheks and sliding scale. 7. Cerebrovascular accident. Continue current medical management. Problems: Exam/Review of Systems Vital Signs Vitals Vital Signs Date Time Temp Pulse Resp B/P Pulse Ox O2 Delivery O2 Flow Rate FiO2 12/02/16 07:24 98.2 66 18 117/66 96 11/29/16 16:28 Room Air Intake and Output 12/01/16 12/01/16 12/02/16 15:00 23:00 07:00 Intake Total 100 ml 360 ml 360 ml Output Total 700 ml 700 ml Balance 100 ml -340 ml -340 ml Results Result Diagram: 12/02/16 0512/02/16 0520 Results 24 hrs Laboratory Tests Test 12/01/16 11:48 12/01/16 17:14 12/01/16 20:58 12/02/16 05:20 Bedside Glucose 132 109 110 White Blood Count 8.3 Red Blood Count 4.06 L Hemoglobin 11.1 L Hematocrit 35.7 L Mean Corpuscular Volume 87.9 Mean Corpuscular Hemoglobin 27.3 L Mean Corpuscular Hemoglobin Concent 31.1 L Red Cell Distribution Width 18.5 H Platelet Count 328 Mean Platelet Volume 10.3 Neutrophils % 64.0 Lymphocytes % 17.6 Monocytes % 12.5 H Eosinophils % 4.8 Basophils % 0.5 Nucleated Red Blood Cells % 0.0 Neutrophils # 5.3 Lymphocytes # 1.5 Monocytes # 1.0 H Eosinophils # 0.4 Basophils # 0.0 Nucleated Red Blood Cells # 0.0 Prothrombin Time 14.8 H Prothrombin Time Ratio 1.2 INR International Normalized Ratio 1.16 Activated Partial Thromboplast Time 31.0 Sodium Level 140 Potassium Level 3.7 Chloride Level 107 Carbon Dioxide Level 25 Anion Gap 12 Blood Urea Nitrogen 25 H Creatinine 2.01 H Glucose Level 128 # Calcium Level 8.9 Test 12/02/16 08:00 Bedside Glucose 103 Medications Medications Current Medications Aspirin (Aspirin) 81 mg DAILY PO Last administered on 12/02/16 08:02; Admin Dose 81 MG; Start 11/29/16 at 09:00 Bumetanide (Bumex) 1 mg DAILY PO Last administered on 12/02/16 08:03; Admin Dose 1 MG; Start 11/29/16 at 09:00 Carvedilol (Coreg) 12.5 mg BID PO Last administered on 12/02/16 08:04; Admin Dose 12.5 MG; Start 11/28/16 at 21:00 Cholecalciferol (Vitamin D) 1,000 unit DAILY PO Last administered on 12/02/16 08:03; Admin Dose 1,000 UNIT; Start 11/29/16 at 09:00 Docusate Sodium (Colace) 250 mg BID PO Last administered on 12/02/16 08:03; Admin Dose 250 MG; Start 11/28/16 at 21:00 Finasteride (Proscar) 5 mg DAILY PO Last administered on 12/02/16 08:02; Admin Dose 5 MG; Start 11/29/16 at 09:00 Loratadine (Claritin) 10 mg DAILY PO Last administered on 12/02/16 08:02; Admin Dose 10 MG; Start 11/29/16 at 09:00 Multivitamins Therapeutic (Theragran) 1 tab DAILY PO Last administered on 08:02; Admin Dose 1 TAB; Start 11/29/16 at 09:00 Nicotine (Nicoderm 21 Mg/ 24hr) 1 patch DAILY TRANSDERM Last administered on 08:14; Admin Dose 1 PATCH; Start 11/29/16 at 09:00 Ferrous Gluconate (Fergon) 325 mg BID PO Last administered on 12/02/16 08:01; Admin Dose 325 MG; Start 11/28/16 at 21:00 Ondansetron HCl (Zofran Inj) 4 mg Q6H PRN IV NAUSEA AND/OR VOMITING; Start 11/28/16 at 14:00 Acetaminophen (Tylenol Tab) 650 mg Q6H PRN PO PAIN LEVEL 1-3 OR FEVER Last administered on 12/02/16 06:54; Admin Dose 650 MG; Start 11/28/16 at 14:00 Acetaminophen (Tylenol Supp) 650 mg Q6H PRN [place] PAIN LEVEL 1-3 OR FEVER; Start 11/28/16 at 14:00 Morphine Sulfate (morphine) 2 mg Q4H PRN IV SEVERE PAIN LEVEL 7-10; Start 11/28 at 14:00 Famotidine (Pepcid) 20 mg Q24H PO Last administered on 12/01/16 20:48; Admin Dose 20 MG; Start 11/28/16 at 21:00 Heparin Sodium (Porcine) (Heparin (5000 Units/0.5 ml)) 5,000 unit Q12 SC Last administered on 12/02/16 08:17; Admin Dose 5,000 UNIT; Start 11/28/16 at 21:00 Diagnostic Test (Pha) (Accu-Chek) 1 ea 02 XX ; Start 11/29/16 at 02:00 Insulin Glargine (Lantus) 20 unit DAILY@08 SC Last administered on 12/02/16 08 :17; Admin Dose 20 UNIT; Start 11/29/16 at 08:00 Atorvastatin Calcium (Lipitor) 80 mg HS PO Last administered on 12/01/16 20:47 ; Admin Dose 80 MG; Start 11/28/16 at 21:00 Miscellaneous Information 1 ea NOTE XX ; Start 11/28/16 at 15:00 Glucose (Glutose) 15 gm Q15M PRN PO DECREASED GLUCOSE; Start 11/28/16 at 15:00 Glucose (Glutose) 22.5 gm Q15M PRN PO DECREASED GLUCOSE; Start 11/28/16 at 15: 00 Dextrose (D50w Syringe) 25 ml Q15M PRN IV DECREASED GLUCOSE; Start 11/28/16 at 15:00 Dextrose (D50w Syringe) 50 ml Q15M PRN IV DECREASED GLUCOSE; Start 11/28/16 at 15:00 Glucagon (Glucagen) 1 mg Q15M PRN IM DECREASED GLUCOSE; Start 11/28/16 at 15:00 Glucose (Glutose) 15 gm Q15M PRN BUCCAL DECREASED GLUCOSE; Start 11/28/16 at 15 :00 Linagliptin 5 mg 5 mg DAILY PO Last administered on 12/02/16 08:03; Admin Dose 5 MG; Start 11/30/16 at 09:00 Levofloxacin/ Dextrose (Levaquin 250 Mg/ D5W 50 ml (Pmx)) 50 ml @ 50 mls/hr Q24H IVPB ; Start 12/02/16 at 13:00 JACOB HOLLIDAY DO Dec 02, 2016 10:09
[2016-12-02] MEDS: LEVOFLOXACIN 250MG/D5W (PMX) 50 ML IVPB SCH (13:05)
[2016-12-02 14:18] VITALS: BP 105/61; RESP 18
--- NOTE | 2016-12-02 14:26 | PN ---
Date/Time of Note Date/Time of Note DATE: 12/02/16 TIME: 14:23 Assessment/Plan VTE Prophylaxis VTE Prophylaxis Intervention: SCD's Lines/Catheters IV Catheter Type (from Nrs): Saline Lock Urinary Cath still in place: No Assessment/Plan Assessment/Plan (1)Acute nonhemorrhagic CVA, out of TPA window. 11/29/2016. MR angiogram brain WO contrast: Mild stenoses of the bilateral middle cerebral artery trifurcation branches and proximal A2 segment of the right anterior cerebral artery. No focal occlusion identified. I: MRI Brain: Patchy acute non-hemorrhagic infarct of the superior aspect left cerebellum with minimal mass effect on the fourth ventricle.No acute hemorrhage. 11/29/2016. MRA Neck: No evidence for carotid bifurcation stenosis. Patent vertebral arteries PLAN: -Continue with aspirin (no need for plavix per neuro), diabetic management, lipid lowering, blood pressure management -Rehabilitation with, PT/OT/ST evaluation and treatment. -Smoking cessation advised. CARDS: (1) Elevated troponin in the absence of chest pain:False negative test??- consecutive trops are normal which makes it low suspicion for poor renal clearance.Another possibility is transient elevation of trop in acute phase of stroke. -Cardiology evaluation appreciated and no further cardiac-work up needed. -Continue with aspirin prophylaxis. (2)Essential hypertension. -Continue home medications. (3)Hypercholesterolemia. -Continue statin. (4)Ischemic cardiomyopathy. TTE with preserved EF. -Continue home medications. RENAL: (1)Chronic kidney disease. Creatinine appears baseline. -Nephrology input greatly appreciated. Monitor renal function closely and renally dose medications. (2)Hx of RCC-Status post left nephrectomy. only has right kidney ENDO (1)DM II-poorly controlled. A1c 12.5. -Continue with Accu-Cheks/ISS/Lantus based on weight. Add Tradjenta to decrease insulin tolerance.Will initiate Metformin up on DC -Diabetic education for home regimen recommendation on DC , carb controlled diet. (2)Hypothyroidism. -Continue Synthroid. UTI on IV abx Ceftriaxone , Urine Cx growign enterococcus, will change abx to levaquind based on sensitivity HSQ Prophylaxis DISP: pt refused to go to SNF, he wants to go home we will have a rn field case manager to work on Home health set up for d/c planning Subjective 24 Hr Interval Summary Free Text/Dictation pt refused to go to SNF ,he wants to go home Exam/Review of Systems Vital Signs Vitals Vital Signs Date Time Temp Pulse Resp B/P Pulse Ox O2 Delivery O2 Flow Rate FiO2 12/02/16 14:18 98.7 73 18 105/61 96 11/29/16 16:28 Room Air Intake and Output 12/01/16 12/01/16 12/02/16 15:00 23:00 07:00 Intake Total 100 ml 360 ml 360 ml Output Total 700 ml 700 ml Balance 100 ml -340 ml -340 ml Exam Constitutional: alert Psych: no complaints Head: normocephalic ENMT: nl external ears & nose Neck: non-tender, supple Respiratory: clear to auscultation, normal air movement Cardiovascular: nl pulses, regular rate and rhythm Gastrointestinal: nl liver, spleen, non-tender, soft Musculoskeletal: nl extremities to inspection, nl gait and stance Results Result Diagram: 12/02/16 0520 12/02/16 0520 Results 24 hrs Laboratory Tests Test 12/01/16 17:14 12/01/16 20:58 12/02/16 05:20 12/02/16 08:00 Bedside Glucose 109 110 103 White Blood Count 8.3 Red Blood Count 4.06 L Hemoglobin 11.1 L Hematocrit 35.7 L Mean Corpuscular Volume 87.9 Mean Corpuscular Hemoglobin 27.3 L Mean Corpuscular Hemoglobin Concent 31.1 L Red Cell Distribution Width 18.5 H Platelet Count 328 Mean Platelet Volume 10.3 Neutrophils % 64.0 Lymphocytes % 17.6 Monocytes % 12.5 H Eosinophils % 4.8 Basophils % 0.5 Nucleated Red Blood Cells % 0.0 Neutrophils # 5.3 Lymphocytes # 1.5 Monocytes # 1.0 H Eosinophils # 0.4 Basophils # 0.0 Nucleated Red Blood Cells # 0.0 Prothrombin Time 14.8 H Prothrombin Time Ratio 1.2 INR International Normalized Ratio 1.16 Activated Partial Thromboplast Time 31.0 Sodium Level 140 Potassium Level 3.7 Chloride Level 107 Carbon Dioxide Level 25 Anion Gap 12 Blood Urea Nitrogen 25 H Creatinine 2.01 H Glucose Level 128 # Calcium Level 8.9 Test 12/02/16 12:05 Bedside Glucose 98 Medications Medications Current Medications Aspirin (Aspirin) 81 mg DAILY PO Last administered on 12/02/16 08:02; Admin Dose 81 MG; Start 11/29/16 at 09:00 Bumetanide (Bumex) 1 mg DAILY PO Last administered on 12/02/16 08:03; Admin Dose 1 MG; Start 11/29/16 at 09:00 Carvedilol (Coreg) 12.5 mg BID PO Last administered on 12/02/16 08:04; Admin Dose 12.5 MG; Start 11/28/16 at 21:00 Cholecalciferol (Vitamin D) 1,000 unit DAILY PO Last administered on 12/02/16 08:03; Admin Dose 1,000 UNIT; Start 11/29/16 at 09:00 Docusate Sodium (Colace) 250 mg BID PO Last administered on 12/02/16 08:03; Admin Dose 250 MG; Start 11/28/16 at 21:00 Finasteride (Proscar) 5 mg DAILY PO Last administered on 12/02/16 08:02; Admin Dose 5 MG; Start 11/29/16 at 09:00 Loratadine (Claritin) 10 mg DAILY PO Last administered on 12/02/16 08:02; Admin Dose 10 MG; Start 11/29/16 at 09:00 Multivitamins Therapeutic (Theragran) 1 tab DAILY PO Last administered on 08:02; Admin Dose 1 TAB; Start 11/29/16 at 09:00 Nicotine (Nicoderm 21 Mg/ 24hr) 1 patch DAILY TRANSDERM Last administered on 08:14; Admin Dose 1 PATCH; Start 11/29/16 at 09:00 Ferrous Gluconate (Fergon) 325 mg BID PO Last administered on 12/02/16 08:01; Admin Dose 325 MG; Start 11/28/16 at 21:00 Ondansetron HCl (Zofran Inj) 4 mg Q6H PRN IV NAUSEA AND/OR VOMITING; Start 11/28/16 at 14:00 Acetaminophen (Tylenol Tab) 650 mg Q6H PRN PO PAIN LEVEL 1-3 OR FEVER Last administered on 12/02/16 06:54; Admin Dose 650 MG; Start 11/28/16 at 14:00 Acetaminophen (Tylenol Supp) 650 mg Q6H PRN ID PAIN LEVEL 1-3 OR FEVER; Start 11/28/16 at 14:00 Morphine Sulfate (morphine) 2 mg Q4H PRN IV SEVERE PAIN LEVEL 7-10; Start 11/28 at 14:00 Famotidine (Pepcid) 20 mg Q24H PO Last administered on 12/01/16 20:48; Admin Dose 20 MG; Start 11/28/16 at 21:00 Heparin Sodium (Porcine) (Heparin (5000 Units/0.5 ml)) 5,000 unit Q12 SC Last administered on 12/02/16 08:17; Admin Dose 5,000 UNIT; Start 11/28/16 at 21:00 Diagnostic Test (Pha) (Accu-Chek) 1 ea 02 XX ; Start 11/29/16 at 02:00 Insulin Glargine (Lantus) 20 unit DAILY@08 SC Last administered on 12/02/16 08 :17; Admin Dose 20 UNIT; Start 11/29/16 at 08:00 Atorvastatin Calcium (Lipitor) 80 mg HS PO Last administered on 12/01/16 20:47 ; Admin Dose 80 MG; Start 11/28/16 at 21:00 Miscellaneous Information 1 ea NOTE XX ; Start 11/28/16 at 15:00 Glucose (Glutose) 15 gm Q15M PRN PO DECREASED GLUCOSE; Start 11/28/16 at 15:00 Glucose (Glutose) 22.5 gm Q15M PRN PO DECREASED GLUCOSE; Start 11/28/16 at 15: 00 Dextrose (D50w Syringe) 25 ml Q15M PRN IV DECREASED GLUCOSE; Start 11/28/16 at 15:00 Dextrose (D50w Syringe) 50 ml Q15M PRN IV DECREASED GLUCOSE; Start 11/28/16 at 15:00 Glucagon (Glucagen) 1 mg Q15M PRN IM DECREASED GLUCOSE; Start 11/28/16 at 15:00 Glucose (Glutose) 15 gm Q15M PRN BUCCAL DECREASED GLUCOSE; Start 11/28/16 at 15 :00 Linagliptin 5 mg 5 mg DAILY PO Last administered on 12/02/16 08:03; Admin Dose 5 MG; Start 11/30/16 at 09:00 Levofloxacin/ Dextrose (Levaquin 250 Mg/ D5W 50 ml (Pmx)) 50 ml @ 50 mls/hr Q24H IVPB Last administered on 10/7/17at 13:05; Admin Dose 50 MLS/HR; Start at 13:00 JAMA SOLANO MD Dec 02, 2016 14:26
[2016-12-02 20:00] VITALS: BP 108/67; RESP 20
[2016-12-02] MEDS: FAMOTIDINE 20 MG TAB PO SCH (20:32)
[2016-12-02] MEDS: ATORVASTATIN 80 MG TAB PO SCH (20:33)
[2016-12-03 02:00] VITALS: BP 99/55; RESP 20
[2016-12-03] MEDS: ACCU-CHEK XX SCH (02:00)
[2016-12-03] MEDS: ACETAMINOPHEN 325 MG TAB PO PRN (05:40)
[2016-12-03 07:47] VITALS: BP 119/75; RESP 18
[2016-12-03] MEDS: INSULIN ASPART [NOVOLOG] 3 ML PEN SC SCH ×2 (08:03→12:15)
[2016-12-03] MEDS: INSULIN GLARGINE [LANtus] 3 ML PEN SC SCH (08:07)
[2016-12-03] MEDS: MULTIVITAMINS THERAPEUTIC TAB PO SCH (08:28)
[2016-12-03] MEDS: NICOTINE (21 MG/24 HR) PATCH TRANSDERM SCH (08:28)
[2016-12-03] MEDS: BUMETANIDE 1 MG TAB PO SCH (08:28)
[2016-12-03] MEDS: FINASTERIDE 5 MG TAB PO SCH (08:29)
[2016-12-03] MEDS: CHOLECALCIFEROL 1,000 UNIT TAB PO SCH (08:29)
[2016-12-03] MEDS: FERROUS GLUCONATE (EC) 325 MG TAB PO SCH (08:29)
[2016-12-03] MEDS: DOCUSATE SODIUM 250 MG CAP PO SCH (08:30)
[2016-12-03] MEDS: LEVOTHYROXINE 25 MCG TAB PO SCH (08:30)
[2016-12-03] MEDS: LINAGLIPTIN 5 MG TABLET PO SCH (08:30)
[2016-12-03] MEDS: ASPIRIN 81 MG TAB PO SCH (08:30)
[2016-12-03] MEDS: HEPARIN 5,000 UNIT/0.5 ML VIAL SC SCH (08:35)
[2016-12-03] MEDS: LORATADINE 10 MG TAB PO SCH (08:38)
--- NOTE | 2016-12-03 10:14 | PN ---
Date/Time of Note Date/Time of Note DATE: 12/03/16 TIME: 10:14 Assessment/Plan VTE Prophylaxis VTE Prophylaxis Intervention: other Lines/Catheters IV [facility] Type [facility]from [facility] Saline Lock Urinary Cath still in place: No Assessment/Plan Chief Complaint/Hosp Course SUBJECTIVE: The patient is stable. No events overnight. OBJECTIVE: HEENT: Head is normocephalic. NECK: Supple. HEART: Regular rate. LUNGS: Show diminished breath sounds at base. ABDOMEN: Soft, nontender to palpation without rebound or guarding. EXTREMITIES: Negative for clubbing, cyanosis, edema. DERMATOLOGIC: No rashes. MUSCULOSKELETAL: No joint effusions. NEUROLOGIC: No change in exam. MEDICATIONS: Have been reviewed. LABORATORY DATA: Has been reviewed and pending. ASSESSMENT AND PLAN: 1. Nonoliguric acute kidney injury on top of chronic kidney disease with a history of nephrectomy. The patient's renal function is stable. Continue current treatment plan. 2. Chronic kidney disease. Renal function. The patient's renal function appears to be at baseline. Continue to monitor. 3. Anemia. Monitor hemoglobin and hematocrit levels. 4. Mineral bone disorder, monitor calcium and phosphorus levels. 5. History of left nephrectomy, renal cell carcinoma. Continue to monitor. 6. Diabetes, continue Accu-Cheks and sliding scale. 7. Cerebrovascular accident. Continue current medical management. Problems: Exam/Review of Systems Vital Signs Vitals Vital Signs Date Time Temp Pulse Resp B/P Pulse Ox O2 Delivery O2 Flow Rate FiO2 12/03/16 07:47 98.5 70 18 119/75 98 11/29/16 16:28 Room Air Intake and Output 12/02/16 12/02/16 12/03/16 15:00 23:00 07:00 Intake Total 50 ml 1520 ml 400 ml Output Total 1040 ml 600 ml Balance 50 ml 480 ml -200 ml Results Result Diagram: 12/02/16 0520 12/02/16 0520 Results 24 hrs Laboratory Tests Test 12/02/16 12:05 12/02/16 17:26 12/02/16 20:30 12/03/16 08:02 Bedside Glucose 98 103 119 120 Medications Medications Current Medications Aspirin (Aspirin) 81 mg DAILY PO Last administered on 12/03/16t 08:30; Admin Dose 81 MG; Start 11/29/16 at 09:00 Bumetanide (Bumex) 1 mg DAILY PO Last administered on 12/03/16 08:28; Admin Dose 1 MG; Start 11/29/16 at 09:00 Carvedilol (Coreg) 12.5 mg BID PO Last administered on 12/03/16 08:28; Admin Dose 12.5 MG; Start 11/28/16 at 21:00 Cholecalciferol (Vitamin D) 1,000 unit DAILY PO Last administered on 12/03/16 08:29; Admin Dose 1,000 UNIT; Start 11/29/16 at 09:00 Docusate Sodium (Colace) 250 mg BID PO Last administered on 12/02/16 20:31; Admin Dose 250 MG; Start 11/28/16 at 21:00 Finasteride (Proscar) 5 mg DAILY PO Last administered on 12/03/16 08:29; Admin Dose 5 MG; Start 11/29/16 at 09:00 Loratadine (Claritin) 10 mg DAILY PO Last administered on 12/03/16 08:38; Admin Dose 10 MG; Start 11/29/16 at 09:00 Multivitamins Therapeutic (Theragran) 1 tab DAILY PO Last administered on 08:28; Admin Dose 1 TAB; Start 11/29/16 at 09:00 Nicotine (Nicoderm 21 Mg/ 24hr) 1 patch DAILY TRANSDERM Last administered on 08:28; Admin Dose 1 PATCH; Start 11/29/16 at 09:00 Ferrous Gluconate (Fergon) 325 mg BID PO Last administered on 12/03/16 08:29; Admin Dose 325 MG; Start 11/28/16 at 21:00 Ondansetron HCl (Zofran Inj) 4 mg Q6H PRN IV NAUSEA AND/OR VOMITING; Start 11/28/16 at 14:00 Acetaminophen (Tylenol Tab) 650 mg Q6H PRN PO PAIN LEVEL 1-3 OR FEVER Last administered on 12/03/16 05:40; Admin Dose 650 MG; Start 11/28/16 at 14:00 Acetaminophen (Tylenol Supp) 650 mg Q6H PRN [place] PAIN LEVEL 1-3 OR FEVER; Start 11/28/16 at 14:00 Morphine Sulfate (morphine) 2 mg Q4H PRN IV SEVERE PAIN LEVEL 7-10; Start 11/28 at 14:00 Famotidine (Pepcid) 20 mg Q24H PO Last administered on 12/02/16 20:32; Admin Dose 20 MG; Start 11/28/16 at 21:00 Heparin Sodium (Porcine) (Heparin (5000 Units/0.5 ml)) 5,000 unit Q12 SC Last administered on 12/03/16 08:35; Admin Dose 5,000 UNIT; Start 11/28/16 at 21:00 Diagnostic Test (Pha) (Accu-Chek) 1 ea 02 XX ; Start 11/29/16 at 02:00 Insulin Glargine (Lantus) 20 unit DAILY@08 SC Last administered on 12/03/16 08 :07; Admin Dose 20 UNIT; Start 11/29/16 at 08:00 Atorvastatin Calcium (Lipitor) 80 mg HS PO Last administered on 12/02/16 20:33 ; Admin Dose 80 MG; Start 11/28/16 at 21:00 Miscellaneous Information 1 ea NOTE XX ; Start 11/28/16 at 15:00 Glucose (Glutose) 15 gm Q15M PRN PO DECREASED GLUCOSE; Start 11/28/16 at 15:00 Glucose (Glutose) 22.5 gm Q15M PRN PO DECREASED GLUCOSE; Start 11/28/16 at 15: 00 Dextrose (D50w Syringe) 25 ml Q15M PRN IV DECREASED GLUCOSE; Start 11/28/16 at 15:00 Dextrose (D50w Syringe) 50 ml Q15M PRN IV DECREASED GLUCOSE; Start 11/28/16 at 15:00 Glucagon (Glucagen) 1 mg Q15M PRN IM DECREASED GLUCOSE; Start 11/28/16 at 15:00 Glucose (Glutose) 15 gm Q15M PRN BUCCAL DECREASED GLUCOSE; Start 11/28/16 at 15 :00 Linagliptin 5 mg 5 mg DAILY PO Last administered on 12/03/16 08:30; Admin Dose 5 MG; Start 11/30/16 at 09:00 Levofloxacin/ Dextrose (Levaquin 250 Mg/ D5W 50 ml (Pmx)) 50 ml @ 50 mls/hr Q24H IVPB Last administered on 12/02/16 13:05; Admin Dose 50 MLS/HR; Start at 13:00 JACOB HOLLIDAY DO Dec 03, 2016 10:14
--- NOTE | 2016-12-03 11:13 | PN ---
Date/Time of Note Date/Time of Note DATE: 12/03/16 TIME: 11:12 Assessment/Plan VTE Prophylaxis VTE Prophylaxis Intervention: SCD's Lines/Catheters IV Catheter Type (from Nrs): Saline Lock Urinary Cath still in place: No Assessment/Plan Assessment/Plan (1)Acute nonhemorrhagic CVA, out of TPA window. 11/29/2016. MR angiogram brain WO contrast: Mild stenoses of the bilateral middle cerebral artery trifurcation branches and proximal A2 segment of the right anterior cerebral artery. No focal occlusion identified. I: MRI Brain: Patchy acute non-hemorrhagic infarct of the superior aspect left cerebellum with minimal mass effect on the fourth ventricle.No acute hemorrhage. 11/29/2016. MRA Neck: No evidence for carotid bifurcation stenosis. Patent vertebral arteries PLAN: -Continue with aspirin (no need for plavix per neuro), diabetic management, lipid lowering, blood pressure management -Rehabilitation with, PT/OT/ST evaluation and treatment. -Smoking cessation advised. CARDS: (1) Elevated troponin in the absence of chest pain:False negative test??- consecutive trops are normal which makes it low suspicion for poor renal clearance.Another possibility is transient elevation of trop in acute phase of stroke. -Cardiology evaluation appreciated and no further cardiac-work up needed. -Continue with aspirin prophylaxis. (2)Essential hypertension. -Continue home medications. (3)Hypercholesterolemia. -Continue statin. (4)Ischemic cardiomyopathy. TTE with preserved EF. -Continue home medications. RENAL: (1)Chronic kidney disease. Creatinine appears baseline. -Nephrology input greatly appreciated. Monitor renal function closely and renally dose medications. (2)Hx of RCC-Status post left nephrectomy. only has right kidney ENDO (1)DM II-poorly controlled. A1c 12.5. -Continue with Accu-Cheks/ISS/Lantus based on weight. Add Tradjenta to decrease insulin tolerance.Will initiate Metformin up on DC -Diabetic education for home regimen recommendation on DC , carb controlled diet. (2)Hypothyroidism. -Continue Synthroid. UTI on IV abx Ceftriaxone , Urine Cx growign enterococcus, will change abx to levaquind based on sensitivity HSQ Prophylaxis DISP: pt refused to go to SNF, he wants to go home we will have a geriatric case manager to work on Home health set up for d/c planning Subjective 24 Hr Interval Summary Free Text/Dictation doing ok, BP stable, pt stable, plan for d/c home today Exam/Review of Systems Vital Signs Vitals Vital Signs Date Time Temp Pulse Resp B/P Pulse Ox O2 Delivery O2 Flow Rate FiO2 12/03/16 07:47 98.5 70 18 119/75 98 11/29/16 16:28 Room Air Intake and Output 12/02/16 12/02/16 12/03/16 15:00 23:00 07:00 Intake Total 50 ml 1520 ml 400 ml Output Total 1040 ml 600 ml Balance 50 ml 480 ml -200 ml Exam Constitutional: alert Psych: no complaints Head: normocephalic ENMT: nl external ears & nose Neck: non-tender, supple Respiratory: clear to auscultation, normal air movement Cardiovascular: nl pulses, regular rate and rhythm Gastrointestinal: nl liver, spleen, non-tender, soft Musculoskeletal: nl extremities to inspection, nl gait and stance Results Result Diagram: 12/02/1651912/02/16 0520 Results 24 hrs Laboratory Tests Test 12/02/16 12:05 12/02/16 17:26 12/02/16 20:30 12/03/16 08:02 Bedside Glucose 98 103 119 120 Medications Medications Current Medications Aspirin (Aspirin) 81 mg DAILY PO Last administered on 12/03/16 08:30; Admin Dose 81 MG; Start 11/29/16 at 09:00 Bumetanide (Bumex) 1 mg DAILY PO Last administered on 12/03/16 08:28; Admin Dose 1 MG; Start 11/29/16 at 09:00 Carvedilol (Coreg) 12.5 mg BID PO Last administered on 12/03/16 08:28; Admin Dose 12.5 MG; Start 11/28/16 at 21:00 Cholecalciferol (Vitamin D) 1,000 unit DAILY PO Last administered on 12/03/16 08:29; Admin Dose 1,000 UNIT; Start 11/29/16 at 09:00 Docusate Sodium (Colace) 250 mg BID PO Last administered on 12/02/16 20:31; Admin Dose 250 MG; Start 11/28/16 at 21:00 Finasteride (Proscar) 5 mg DAILY PO Last administered on 12/03/16 08:29; Admin Dose 5 MG; Start 11/29/16 at 09:00 Loratadine (Claritin) 10 mg DAILY PO Last administered on 12/03/16 08:38; Admin Dose 10 MG; Start 11/29/16 at 09:00 Multivitamins Therapeutic (Theragran) 1 tab DAILY PO Last administered on 08:28; Admin Dose 1 TAB; Start 11/29/16 at 09:00 Nicotine (Nicoderm 21 Mg/ 24hr) 1 patch DAILY TRANSDERM Last administered on 08:28; Admin Dose 1 PATCH; Start 11/29/16 at 09:00 Ferrous Gluconate (Fergon) 325 mg BID PO Last administered on 12/03/16 08:29; Admin Dose 325 MG; Start 11/28/16 at 21:00 Ondansetron HCl (Zofran Inj) 4 mg Q6H PRN IV NAUSEA AND/OR VOMITING; Start 11/28/16 at 14:00 Acetaminophen (Tylenol Tab) 650 mg Q6H PRN PO PAIN LEVEL 1-3 OR FEVER Last administered on 12/03/16 05:40; Admin Dose 650 MG; Start 11/28/16 at 14:00 Acetaminophen (Tylenol Supp) 650 mg Q6H PRN [place] PAIN LEVEL 1-3 OR FEVER; Start 11/28/16 at 14:00 Morphine Sulfate (morphine) 2 mg Q4H PRN IV SEVERE PAIN LEVEL 7-10; Start 11/28 at 14:00 Famotidine (Pepcid) 20 mg Q24H PO Last administered on 12/02/16 20:32; Admin Dose 20 MG; Start 11/28/16 at 21:00 Heparin Sodium (Porcine) (Heparin (5000 Units/0.5 ml)) 5,000 unit Q12 SC Last administered on 12/03/16 08:35; Admin Dose 5,000 UNIT; Start 11/28/16 at 21:00 Diagnostic Test (Pha) (Accu-Chek) 1 ea 02 XX ; Start 11/29/16 at 02:00 Insulin Glargine (Lantus) 20 unit DAILY@08 SC Last administered on 12/03/16 08 :07; Admin Dose 20 UNIT; Start 11/29/16 at 08:00 Atorvastatin Calcium (Lipitor) 80 mg HS PO Last administered on 12/02/16 20:33 ; Admin Dose 80 MG; Start 11/28/16 at 21:00 Miscellaneous Information 1 ea NOTE XX ; Start 11/28/16 at 15:00 Glucose (Glutose) 15 gm Q15M PRN PO DECREASED GLUCOSE; Start 11/28/16 at 15:00 Glucose (Glutose) 22.5 gm Q15M PRN PO DECREASED GLUCOSE; Start 11/28/16 at 15: 00 Dextrose (D50w Syringe) 25 ml Q15M PRN IV DECREASED GLUCOSE; Start 11/28/16 at 15:00 Dextrose (D50w Syringe) 50 ml Q15M PRN IV DECREASED GLUCOSE; Start 11/28/16 at 15:00 Glucagon (Glucagen) 1 mg Q15M PRN IM DECREASED GLUCOSE; Start 11/28/16 at 15:00 Glucose (Glutose) 15 gm Q15M PRN BUCCAL DECREASED GLUCOSE; Start 11/28/16 at 15 :00 Linagliptin 5 mg 5 mg DAILY PO Last administered on 12/03/16 08:30; Admin Dose 5 MG; Start 11/30/16 at 09:00 Levofloxacin/ Dextrose (Levaquin 250 Mg/ D5W 50 ml (Pmx)) 50 ml @ 50 mls/hr Q24H IVPB Last administered on 12/02/16 13:05; Admin Dose 50 MLS/HR; Start at 13:00 JAMA SOLANO MD Dec 03, 2016 11:13
--- NOTE | 2016-12-03 11:19 | PDOCDIS ---
Discharge Instructions CONDITION Patient Condition: Good HOME CARE INSTRUCTIONS: Special Diet: 2 GM NA DIET ACTIVITY: Activity Restrictions: Slowly Increase Activity Rest between Activity Avoid heavy lifting Avoid Heavy Housework FOLLOW UP/APPOINTMENTS Follow-up Plan follow up with his own PMD [facility] in 1-2 week after discharge. JAMA SOLANO MD Dec 03, 2016 11:19
[2016-12-03] MEDS ORDERED: LEVO250T9 PO (11:22)
[2016-12-03] MEDS: LEVOFLOXACIN 250MG/D5W (PMX) 50 ML IVPB SCH (13:22)
--- NOTE | 2016-12-03 17:39 | DS ---
Date/Time of Note Date/Time of Note DATE: 12/03/16 TIME: 17:39 Discharge Summary Admission/Discharge Info Admit Date/Time Nov 28, 2016 at 12:57 Discharge Date/Time Dec 03, 2016 at 16:12 Discharge Diagnosis 1. Acute nonhemorrhagic CVA, out of TPA window. 2. Elevated troponin in the absence of chest pain: due to poor renal clearance. 3. Essential hypertension. 4. Hypercholesterolemia. 5. Ischemic cardiomyopathy. TTE with preserved EF. 6. MARQUEZ on CKD with h/o Nephrectomy for renal cell carcinoma 7. Hx of RCC-Status post left nephrectomy. only has right kidney 8. DM II-poorly controlled. A1c 12.5. 9. Hypothyroidism. 10. UTI with Urine Cx growign enterococcus, Patient Condition: Good Consults Neurology consult Cardiology consult Procedures 11/29/2016. MR angiogram brain WO contrast: Mild stenoses of the bilateral middle cerebral artery trifurcation branches and proximal A2 segment of the right anterior cerebral artery. No focal occlusion identified. I: MRI Brain: Patchy acute non-hemorrhagic infarct of the superior aspect left cerebellum with minimal mass effect on the fourth ventricle.No acute hemorrhage. 11/29/2016. MRA Neck: No evidence for carotid bifurcation stenosis. Patent vertebral arteries Hx of Present Illness This is a 66-year-old obese with multiple comorbidities significant for tobacco use, ischemic cardiomyopathy, mitral regurgitation, type 2 diabetes- off treatment, coronary artery disease with PCI, bladder cancer, renal carcinoma, status post left nephrectomy, dyslipidemia, hypothyroidism, gout, pyelonephritis with sepsis history, hypertension, chronic kidney disease, obstructive nephropathy with nephrolithiasis and stent placement in the past, and BPH, who essentially presented to the emergency room for evaluation of acute onset of dizziness , off balancing on left side, and LUE ,LLE numbness, which started 4 days ago-to be exact, on Sunday. He has had "dry heaves". Patient denied any history of stroke. Patient [facility] the [facility]. Patient denied chest pain, palpitation, shortness of breath, nausea, vomiting, abdominal pain, headache, numbness, tingling or other constitutional symptoms. Denied any vision changes, facial asymmetry, neglect, or dysarthria. In the emergency room, patient was noted with elevated troponin I 0.040. His EKG showed nonspecific ST and T-wave changes without any acute changes. Patient also had elevated BUN 21 with creatinine 2.05. Vital signs within acceptable range. Chest x-ray without any acute changes. A brain CT showed suspicion for small recent/subacute left cerebellar infarct. There was no acute hemorrhage identified. Patient was treated with 325 mg aspirin, heparin 5000 IV and was admitted for further evaluation. Hospital Course pt gets admitted for acute left cerebellar CVA. he was seen by Neurology . pt was out of tPA window. he also had a ischemic Cardiomyopathy with ECHo showign Preserved EF and no PFO. he was followed up by Cardiology . During this admission he had a MARQUEZ on CKD. he improved to his baseline cr of 2.01 at the time of discharge. he had a UTI with urine cx growing enterococcus, initially he was treated with IV ceftriaxone but then it was swithced to IV levaquin and he was discharged home with PO levaquin. he was recommended to go to SNF but he refused and he wanted to go home. he gets discharged to home with home health. Home Meds Active Scripts Levofloxacin* (Levofloxacin*) 250 Mg Tablet, 250 MG PO DAILY for Urinary tract infection , #7 TAB Prov:JAMA SOLANO MD 12/03/16 Reported Medications Ferrous Gluconate (Iron) 256 Mg Tablet, 256 MG PO BID, TAB 11/28/16 Finasteride* (Finasteride*) 5 Mg Tablet, 5 MG PO DAILY, TAB 11/28/16 Nicotine* (Nicotine* Patch) 21 mg/day Patch, 1 EACH TD DAILY, PATCH 11/28/16 Bumetanide* (Bumetanide*) 1 Mg Tablet, 1 MG PO DAILY, TAB 11/28/16 Loratadine* (Loratadine*) 10 Mg Tablet, 10 MG PO DAILY, #30 TAB 11/28/16 Carvedilol* (Carvedilol*) 12.5 Mg Tablet, 12.5 MG PO BID, TAB 06/09/14 Aspirin* (Aspirin* Chew) 81 Mg Tab.chew, 81 MG PO DAILY, TAB.CHEW 06/08/14 Cholecalciferol* (Vitamin D3*) 1,000 Unit Tablet, 1000 UNIT PO DAILY, TAB 06/08/14 Docusate Sodium* (Colace*) 250 Mg Capsule, 250 MG PO BID, CAP 06/08/14 Atorvastatin* (Atorvastatin*) 40 Mg Tablet, 40 MG PO HS, TAB 06/08/14 Multivitamins* (Theragran*) 1 Tab Tab, 1 TAB PO DAILY, TAB 06/08/14 Levothyroxine Sodium* (Levothyroxine Sodium*) 25 Mcg Tablet, 25 MCG PO AC BREAKFAST, TAB 06/08/14 Discontinued Reported Medications [Loratidine] No Conflict Check, 10 MG PO DAILY 06/09/14 Losartan Potassium* (Losartan Potassium*) 100 Mg Tablet, 100 MG PO DAILY, TAB 06/08/14 Allopurinol* (Allopurinol*) 100 Mg Tablet, 200 MG PO DAILY, TAB 06/08/14 Metformin* (Glucophage*) 500 Mg Tab, 500 MG PO BID, TAB 06/08/14 Hydroxyzine Hcl* (Hydroxyzine Hcl*) 50 Mg Tablet, 50 MG PO QHS Y for ITCHING, TAB 06/08/14 Discontinued Scripts Loperamide Hcl* (Imodium*) 2 Mg Capsule, 2 MG PO .AFTER EA LOOSE BM Y for DIARRHEA, #10 TAB Prov:FADIA HATCH MD 03/08/16 Ciprofloxacin Hcl* (Ciprofloxacin Hcl*) 500 Mg Tablet, 500 MG PO BID for 7 Days , TAB Prov:FADIA HATCH MD 03/08/16 Ciprofloxacin Hcl* (Ciprofloxacin Hcl*) 500 Mg Tablet, 500 MG PO BID, #20 TAB 0 Refills Prov:KOKO RAMSAY MD 09/12/14 Acetaminophen (TYLENOL 325 MG TAB) 325 Mg Tab, 650 MG PO Q6H Y for PAIN LEVEL 1- 3 OR FEVER for 10 Days, TAB Prov:YOON PERRY MD 06/14/14 Follow-up Plan follow up with [facility] own PMD [facility] 1-2 week after discharge. Primary Care Provider Crystal Red MD Time spent on discharge: > 30 minutes Pending Labs Laboratory Tests Test 12/02/16 20:30 12/03/16 08:02 12/03/16 12:23 Bedside Glucose 119mg/dL (70-220) 120mg/dL (70-220) 96mg/dL (70-220) JAMA SOLANO MD Dec 03, 2016 17:39
== END 2016-12-03 16:12 | disposition home health service (06) | DRG 65 ==
LOC: E/R 10:32 → MS3 12:57 → TEL 11-29 18:08 → MS2 12-01 13:35
PROVIDERS: ADMIT Internal Medicine; ATTEND Internal Medicine
DX: I63.8 Other cerebral infarction (principal); G81.94 Hemiplegia, unspecified affecting left nondominant side; N17.9 Acute kidney failure, unspecified; E11.22 Type 2 diabetes mellitus with diabetic chronic kidney disease; I13.0 Hypertensive heart and chronic kidney disease with heart failure and stage 1 through stage 4 chronic kidney disease, or unspecified chronic kidney disease; I50.30 Unspecified diastolic (congestive) heart failure; N39.0 Urinary tract infection, site not specified; E11.65 Type 2 diabetes mellitus with hyperglycemia; I63.9 Cerebral infarction, unspecified; E78.00 Pure hypercholesterolemia, unspecified; E03.9 Hypothyroidism, unspecified; I25.2 Old myocardial infarction; N18.9 Chronic kidney disease, unspecified; D50.9 Iron deficiency anemia, unspecified; I25.5 Ischemic cardiomyopathy
CPT/HCPCS: 36415; 70450; 70544; 70549; 70551; 71010; 80048; 80053; 80061; 80307; 81001; 82550; 82553; 82962; 83036; 83540; 83735; 84100; 84443; 84484; 85025; 85610; 85730; 87040; 87086; 92507; 92523; 92610; 93005; 93306; 96374; 97161; 97167; J0696; J1644; J1815; J1956; J2270

== ENCOUNTER 2017-08-27 17:46 | Inpatient (IN) | END 2017-08-30 23:15 | DRG 871 ==